=== PATIENT | male | born 1965 | race Two or more races ===

== ENCOUNTER 2020-04-04 08:22 | Outpatient (REF) | payer OTHER, SELFPAY | END 2020-04-04 08:23 | disposition home or self-care (01) | LOC: HO.LAB 08:22 | PROVIDERS: Visit Provider Internal Medicine | DX: Z20.828 Contact with and (suspected) exposure to other viral communicable diseases (principal) | CPT/HCPCS: C9803; U0003 ==

== ENCOUNTER 2021-02-03 07:08 | Outpatient (REF) | payer OTHER, SELFPAY ==
[2021-02-03 07:27] LABS: MANUAL DIFF FLAG NO
[2021-02-03 08:11] LABS: Basophils Percent Auto 0.4 % (0-2); Eosinophils Absolute Auto 0.1 X10*3/uL (0.0-0.4); Eosinophils Percent Auto 1.2 % (0-4); Imm Gran Abs Auto 0.04 X10*3/uL (0.00-0.03); Imm Gran Pct Auto 0.5 % (0.0-0.4); Lymphocytes Absolute Auto 2.8 X10*3/uL (1.2-4.9); Mean Corpuscular HGB Conc 34.1 g/dl (31.0-36.0); Mean Corpuscular Hemoglobin 30.2 pg (27.0-33.0); Mean Corpuscular Volume 88.7 fL (80-98); Mean Platelet Volume 10.9 fL (9.4-12.4); Monocytes Absolute Auto 0.6 X10*3/uL (0.1-1.2); Monocytes Percent Auto 8.2 % (2-11); Neutrophils Absolute Auto 3.8 X10*3/uL (2.0-8.3); Neutrophils Percent Auto 51.7 % (45-73); Platelet Count 236 X10*3/uL (160-400); Red Blood Count 4.96 X10*6/uL (4.60-5.80); Red Cell Distribution Width 12.1 % (11.0-16.0); White Blood Count 7.4 X10*3/uL (4.8-10.8)
[2021-02-03 08:37] LABS: Appearance Urine CLEAR; Color Urine YELLOW; Glucose Urine UA >=1000 MG/DL (NEG); Leukocyte Esterase Urine NEG (NEG); Nitrite Urine NEG (NEG); Urine Blood NEG (NEG); Urine Ketones NEG (NEG); Urine Protein NEG (NEG-TRACE)
[2021-02-03 08:41] LABS: Alanine Aminotransferase 23 U/L (0-40); Albumin Level 4.4 g/dL (3.5-5.0); Alkaline Phosphatase 54 U/L (39-117); Anion Gap 12 (12-20); Aspartate Amino Transferase 14 U/L (5-37); Bilirubin Total 0.8 mg/dL (0.0-1.0); Blood Urea Nitrogen 16 mg/dL (9-16); Calcium 9.4 mg/dL (8.4-10.2); Carbon Dioxide 27 mmol/L (22-29); Chloride 101 mmol/L (96-108); Cholesterol 154 mg/dL; Estimated Glomerular Filt Rate > 60; Glucose Fasting 225 mg/dL (60-99); HDL Cholesterol 53 mg/dL; LDL Cholesterol Calculated 83 mg/dl; Potassium 4.4 mmol/L (3.3-5.1); Sodium 136 mmol/L (135-145); Triglycerides 92 mg/dL
[2021-02-03 08:44] LABS: RBC Urine 0 /HPF (0); WBC Urine 0 /HPF (0-4)
[2021-02-03 09:00] LABS: Estimated Average Glucose 321 mg/dL; Hemoglobin A1c % 12.8 %
[2021-02-03 09:03] LABS: TSH reflex Free T4 1.37 uIU/mL (0.32-4.0)
[2021-02-03 09:09] LABS: Creatinine Urine 51.85 mg/dL; Microalbumin Urine < 5.0 mg/L
== END 2021-02-03 07:09 | disposition home or self-care (01) ==
LOC: HO.LAB 07:08
PROVIDERS: PCP Internal Medicine; Visit Provider Internal Medicine
DX: E11.9 Type 2 diabetes mellitus without complications (principal); I10 Essential (primary) hypertension; E78.00 Pure hypercholesterolemia, unspecified
CPT/HCPCS: 36415; 80053; 80061; 81001; 82043; 83036; 84443; 85025

== ENCOUNTER 2021-07-27 07:21 | Outpatient (REF) | payer OTHER, SELFPAY ==
[2021-07-27 07:38] LABS: MANUAL DIFF FLAG NO
[2021-07-27 08:27] LABS: Appearance Urine CLEAR; Color Urine YELLOW; Glucose Urine UA >=1000 MG/DL (NEG); Leukocyte Esterase Urine NEG (NEG); Nitrite Urine NEG (NEG); PH 5.5 (5.0-8.0); Specific Gravity - Urine <= 1.005 (1.005-1.025); Urine Blood NEG (NEG); Urine Ketones NEG (NEG); Urine Protein NEG (NEG-TRACE)
[2021-07-27 08:34] LABS: Basophils Percent Auto 0.5 % (0-2); Eosinophils Absolute Auto 0.1 X10*3/uL (0.0-0.4); Eosinophils Percent Auto 1.1 % (0-4); Hematocrit 47.3 % (42.0-52.0); Hemoglobin 15.6 g/dl (14.0-18.0); Imm Gran Abs Auto 0.03 X10*3/uL (0.00-0.03); Imm Gran Pct Auto 0.4 % (0.0-0.4); Lymphocytes Absolute Auto 3.2 X10*3/uL (1.2-4.9); Lymphocytes Percent Auto 38.5 % (20-40); Mean Corpuscular Hemoglobin 29.5 pg (27.0-33.0); Mean Corpuscular Volume 89.4 fL (80.0-98.0); Mean Platelet Volume 11.1 fL (9.4-12.4); Monocytes Absolute Auto 0.5 X10*3/uL (0.1-1.2); Monocytes Percent Auto 6.6 % (2-11); Neutrophils Absolute Auto 4.3 x10*3/uL (2.0-8.3); Neutrophils Percent Auto 52.9 % (45-73); Platelet Count 274 X10*3/uL (160-400); Red Blood Count 5.29 X10*6/uL (4.60-5.80); Red Cell Distribution Width 12.1 % (11.0-16.0); White Blood Count 8.2 X10*3/uL (4.8-10.8)
[2021-07-27 08:45] LABS: Estimated Average Glucose 295 mg/dL; Hemoglobin A1c % 11.9 %
[2021-07-27 08:45] LABS: RBC Urine 0 /HPF (0); WBC Urine 0 /HPF (0-4)
[2021-07-27 08:53] LABS: Creatinine Urine 42.48 mg/dL; Microalbumin Urine < 5.0 mg/L
[2021-07-27 09:01] LABS: Alanine Aminotransferase 27 U/L (0-40); Albumin Level 4.5 g/dL (3.5-5.0); Alkaline Phosphatase 58 U/L (39-117); Anion Gap 15 (12-20); Aspartate Amino Transferase 15 U/L (5-37); Bilirubin Total 0.7 mg/dL (0.0-1.0); Blood Urea Nitrogen 17 mg/dL (9-16); Calcium 10.2 mg/dL (8.4-10.2); Carbon Dioxide 26 mmol/L (22-29); Chloride 100 mmol/L (96-108); Cholesterol 162 mg/dL; Estimated Glomerular Filt Rate > 60; Glucose Fasting 262 mg/dL (60-99); HDL Cholesterol 58 mg/dL; LDL Cholesterol Calculated 83 mg/dl; Potassium 4.5 mmol/L (3.3-5.1); Sodium 136 mmol/L (135-145); Total Protein 7.5 g/dL (6.5-8.0); Triglycerides 107 mg/dL
[2021-07-27 09:13] LABS: Vitamin D 25-OH Total 31.7 ng/mL (>30)
== END 2021-07-27 07:22 | disposition home or self-care (01) ==
LOC: HO.LAB 07:21
PROVIDERS: PCP Internal Medicine; Visit Provider Internal Medicine
DX: I10 Essential (primary) hypertension (principal); E78.00 Pure hypercholesterolemia, unspecified; E11.9 Type 2 diabetes mellitus without complications; E55.9 Vitamin D deficiency, unspecified
CPT/HCPCS: 36415; 80053; 80061; 81001; 82043; 82306; 83036; 84443; 85025

== ENCOUNTER 2021-10-18 07:42 | Outpatient (REF) | payer OTHER, SELFPAY ==
[2021-10-18 08:13] LABS: MANUAL DIFF FLAG NO
[2021-10-18 08:20] LABS: Basophils Percent Auto 0.5 % (0-2); Eosinophils Absolute Auto 0.1 X10*3/uL (0.0-0.4); Eosinophils Percent Auto 1.5 % (0-4); Hematocrit 46.9 % (42.0-52.0); Hemoglobin 15.9 g/dl (14.0-18.0); Imm Gran Abs Auto 0.03 X10*3/uL (0.00-0.03); Imm Gran Pct Auto 0.4 % (0.0-0.4); Lymphocytes Absolute Auto 3.1 X10*3/uL (1.2-4.9); Lymphocytes Percent Auto 39.6 % (20-40); Mean Corpuscular HGB Conc 33.9 g/dl (31.0-36.0); Mean Corpuscular Hemoglobin 29.4 pg (27.0-33.0); Mean Corpuscular Volume 86.7 fL (80.0-98.0); Mean Platelet Volume 10.4 fL (9.4-12.4); Monocytes Absolute Auto 0.6 X10*3/uL (0.1-1.2); Monocytes Percent Auto 7.2 % (2-11); Neutrophils Percent Auto 50.8 % (45-73); Platelet Count 259 X10*3/uL (160-400); Red Blood Count 5.41 X10*6/uL (4.60-5.80); Red Cell Distribution Width 12.4 % (11.0-16.0); White Blood Count 7.9 X10*3/uL (4.8-10.8)
[2021-10-18 08:30] LABS: Estimated Average Glucose 321 mg/dL; Hemoglobin A1c % 12.8 %
[2021-10-18 08:35] LABS: Appearance Urine CLEAR; Color Urine YELLOW; Glucose Urine UA >=1000 MG/DL (NEG); Leukocyte Esterase Urine NEG (NEG); Nitrite Urine NEG (NEG); PH 5.5 (5.0-8.0); Specific Gravity - Urine <= 1.005 (1.005-1.025); Urine Blood NEG (NEG); Urine Ketones NEG (NEG); Urine Protein NEG (NEG-TRACE)
[2021-10-18 08:46] LABS: Alanine Aminotransferase 26 U/L (0-40); Albumin Level 4.8 g/dL (3.5-5.0); Alkaline Phosphatase 64 U/L (39-117); Anion Gap 17 (12-20); Aspartate Amino Transferase 15 U/L (5-37); Bilirubin Total 0.8 mg/dL (0.0-1.0); Blood Urea Nitrogen 17 mg/dL (9-16); Carbon Dioxide 23 mmol/L (22-29); Chloride 101 mmol/L (96-108); Cholesterol 170 mg/dL; Estimated Glomerular Filt Rate > 60; Glucose Fasting 292 mg/dL (60-99); HDL Cholesterol 62 mg/dL; LDL Cholesterol Calculated 83 mg/dl; Potassium 4.5 mmol/L (3.3-5.1); Sodium 136 mmol/L (135-145); Total Protein 7.9 g/dL (6.5-8.0); Triglycerides 126 mg/dL
[2021-10-18 08:59] LABS: Creatinine Urine 42.66 mg/dL; Microalbumin Urine < 5.0 mg/L; RBC Urine 0-2 /HPF (0); Squamous Epithelial Cell Urine TRACE /LPF; WBC Urine 0 /HPF (0-4)
[2021-10-18 09:08] LABS: TSH reflex Free T4 1.11 uIU/mL (0.32-4.0); Vitamin D 25-OH Total 33.9 ng/mL (>30)
== END 2021-10-18 07:43 | disposition home or self-care (01) ==
LOC: HO.LAB 07:42
PROVIDERS: PCP Internal Medicine; Visit Provider Internal Medicine
DX: I10 Essential (primary) hypertension (principal); E78.00 Pure hypercholesterolemia, unspecified; E55.9 Vitamin D deficiency, unspecified; E11.9 Type 2 diabetes mellitus without complications
CPT/HCPCS: 36415; 80053; 80061; 81001; 82043; 82306; 83036; 84443; 85025

== ENCOUNTER 2022-07-15 08:01 | Outpatient (REF) | payer OTHER, SELFPAY ==
[2022-07-15 08:10] LABS: MANUAL DIFF FLAG NO
[2022-07-15 08:17] LABS: Basophils Percent Auto 0.5 % (0-2); Eosinophils Absolute Auto 0.1 X10*3/uL (0.0-0.4); Eosinophils Percent Auto 1.7 % (0-4); Hemoglobin 15.3 g/dl (14.0-18.0); Imm Gran Abs Auto 0.02 X10*3/uL (0.00-0.03); Imm Gran Pct Auto 0.2 % (0.0-0.4); Lymphocytes Absolute Auto 2.8 X10*3/uL (1.2-4.9); Lymphocytes Percent Auto 33.1 % (20-40); Mean Corpuscular Hemoglobin 29.9 pg (27.0-33.0); Mean Corpuscular Volume 87.9 fL (80.0-98.0); Mean Platelet Volume 10.3 fL (9.4-12.4); Monocytes Absolute Auto 0.6 X10*3/uL (0.1-1.2); Neutrophils Absolute Auto 4.8 x10*3/uL (2.0-8.3); Neutrophils Percent Auto 57.5 % (45-73); Platelet Count 245 X10*3/uL (160-400); Red Blood Count 5.12 X10*6/uL (4.60-5.80); Red Cell Distribution Width 12.7 % (11.0-16.0); White Blood Count 8.3 X10*3/uL (4.8-10.8)
[2022-07-15 08:30] LABS: Estimated Average Glucose 278 mg/dL; Hemoglobin A1c % 11.3 %
[2022-07-15 09:04] LABS: Appearance Urine Clear; Color Urine Yellow; Glucose Urine UA >=1000 mg/dL (Negative); Leukocyte Esterase Urine Negative (Negative); Nitrite Urine Negative (Negative); Specific Gravity - Urine >= 1.030 (1.005-1.025); UMIC TRIGGER UACC YES; Urine Blood Negative (Negative); Urine Ketones Negative (Negative); Urine Protein Negative (Neg-Trace)
[2022-07-15 09:08] LABS: Alanine Aminotransferase 18 U/L (0-40); Albumin Level 4.5 g/dL (3.5-5.0); Alkaline Phosphatase 58 U/L (39-117); Anion Gap 11 (12-20); Aspartate Amino Transferase 11 U/L (5-37); Bilirubin Total 0.6 mg/dL (0.0-1.0); Blood Urea Nitrogen 15 mg/dL (9-16); Calcium 9.4 mg/dL (8.4-10.2); Carbon Dioxide 28 mmol/L (22-29); Chloride 102 mmol/L (96-108); Cholesterol 155 mg/dL; Estimated Glomerular Filt Rate > 60; Glucose Fasting 231 mg/dL (60-99); HDL Cholesterol 58 mg/dL; LDL Cholesterol Calculated 84 mg/dl; Potassium 4.3 mmol/L (3.3-5.1); Sodium 137 mmol/L (135-145); Triglycerides 68 mg/dL
[2022-07-15 09:09] LABS: Bacteria Urine None Seen (None Seen); Hyaline Casts Urine 0-2 /LPF (0-2); RBC Urine 0-2 /HPF (0-2); Squamous Epithelial Cell Urine 0-2 /HPF (0-2); WBC Urine 0-5 /HPF (0-5)
[2022-07-15 09:27] LABS: Prostate Specific Antigen Scr 0.47 ng/mL (<0.05-4.0); TSH reflex Free T4 1.33 uIU/mL (0.32-4.0); Vitamin D 25-OH Total 24.9 ng/mL (>30)
[2022-07-15 09:45] LABS: Creatinine Urine 53.47 mg/dL; Microalbumin Urine < 5.0 mg/L
== END 2022-07-15 08:02 | disposition home or self-care (01) ==
LOC: HO.LAB 08:01
PROVIDERS: PCP Internal Medicine; Visit Provider Internal Medicine
DX: Z00.00 Encounter for general adult medical examination without abnormal findings (principal); Z12.5 Encounter for screening for malignant neoplasm of prostate; E78.00 Pure hypercholesterolemia, unspecified; E11.9 Type 2 diabetes mellitus without complications; E55.9 Vitamin D deficiency, unspecified; I10 Essential (primary) hypertension
CPT/HCPCS: 36415; 80053; 80061; 81001; 81003; 82043; 82306; 83036; 84153; 84443; 85025

== ENCOUNTER 2022-07-18 16:44 | Outpatient (AMB) | payer OTHER, SELFPAY ==
[2022-07-18 16:49] VITALS: BP 124/78; PULSE 97; TEMP 36; O2SAT 97; BMI 28.4
--- NOTE | 2022-07-18 16:49 | MHC.PC.OV ---
Vital Signs 07/18/22 16:49 Height 5 ft 8 in Weight 187 lb 2 oz BMI 28.4 BP 124/78 Blood Pressure Location Lt brachial Position Sitting Pulse 97 Pulse Source Pulse Oximeter Temp 96.8 F Temp Source Skin Pulse Oximetry (%) 97 Oxygen Delivery Method Room Air Intake Visit Reasons: 3m follow up Intake Note: Pt is here for 3 month f/u. Having issues with getting the medication at the pharmacy for [facility] Education Nurse Required: No Accompanied by: Self / Same As Patient Allergies No Known Allergies [No Known Allergies*] Allergy (Verified 01/19/23 09:31) Tobacco use date assessed: 07/18/22 HPI 3m follow up HPI Details Patient comes in today for his follow-up visit States that he feels okay He denies any headaches or dizziness Denies any chest pains, no shortness of breath No nausea /vomiting, no abdominal pain No change in bowel habits noted Needs several of his Rx refilled Had his follow-up labs done a few days ago - to discuss his results [facility] Medical History (Updated 02/07/23 @ 05:48 by Víctor Klein MD) Vitamin D deficiency Erectile dysfunction Bilateral hearing loss Overweight (BMI 25.0-29.9) Benign essential hypertension Pure hypercholesterolemia Type 2 diabetes mellitus Surgical History No pertinent past surgical history Family History Father No problems noted. Mother No problems noted. Social History Housing: House Alcohol intake: former Patient Tobacco Use Status: Never used Tobacco e-Cigarette/Vaping Use: Never Used Second Hand Smoke Exposure: No service: No Current occupational status: employed Cognitive needs: No Hearing needs: No Vision needs: No Questionnaire PHQ-9 Over the last 2 weeks, how often have you been bothered by any of the following problems? 1. Little interest or pleasure in doing things: not at all 2. Feeling down, depressed, or hopeless: not at all 3. Trouble falling or staying asleep, or sleeping too much: not at all 4. Feeling tired or having little energy: not at all 5. Poor appetite or overeating: not at all 6. Feeling bad about yourself - or that you are a failure or have let yourself or your family down: not at all 7. Trouble concentrating on things, such as reading the newspaper or watching television: not at all 8. Moving or speaking so slowly that other people could have noticed. Or the opposite - being so fidgety or restless that you have been moving around a lot more than usual: not at all 9. Thoughts that you would be better off or of hurting yourself in some way: not at all Total score: 0 Depression Screening Interpretation: Negative 29002 - PHQ-9 Billing: Yes Source: Developed by Drs. Jcarlos Clrake, Malissa Cohen, Tejinder Sierra and colleagues, with an educational natali from [employer]. Thrive Questionnaire Date Thrive assessed: 07/18/22 I am a: Patient What is your living situation today?: I have a steady place to live Within the past 12 months, did the food you bought not last and you didn't have the money to get more?: Never true Within the past 12 months, did you worry whether your food would run out before you got money to buy more?: Never true Do you have trouble paying for medicines?: No Do you have trouble getting transportation to medical appointments?: No Do you have trouble paying your heating and electricity bill?: No Do you have trouble taking care of your child, family member or friend?: No Do you have trouble with day-to-day activities such as bathing, preparing meals, shopping, managing finances, etc.?: No Are you currently unemployed and looking for a job?: No Are you interested in more education?: No Currently or been in a relationship where the following occur: no concerns reported AUDIT C Alcohol Use Questionnaire (AUDIT-C) 1. How often do you have a drink containing alcohol?: Never 3. How often do you have six or more drinks on one occasion?: Never Total Score: 0 Score Reviewed/Action Taken: Yes FLORIN-7 AMB Questionnaire FLORIN-7 Date FLORIN - 7 assessed: 07/18/22 Feeling nervous, anxious, or on edge: 0 = Not at all Not being able to stop or control worryin = Not at all Worrying too much about different things: 0 = Not at all Trouble relaxin = Not at all Being so restless that it is hard to sit still: 0 = Not at all Becoming easily annoyed or irritable: 0 = Not at all Feeling afraid as if something awful might happen: 0 = Not at all Total FLORIN-7 score (0-4 normal; 5-9 mild; 10-14 moderate; 15-21 severe): 0 Source: Developed by Drs. Jcarlos Clarke, Malissa Cohen, Tejinder Sierra and colleagues, with an educational natali from [employer]. Review of Systems Const Denies fatigue, Denies fever(s) and Denies headache(s) ENT Denies dysphagia, Denies dizziness, Denies otalgia, Denies headache(s), Denies neck pain, Denies odynophagia and Denies sore throat Card Denies chest pain, Denies rapid heart rate, Denies irregular heart rhythm, Denies palpitations and Denies dyspnea Resp Denies cough, Denies dyspnea and Denies wheezing GI Denies abdominal pain, Denies constipation, Denies dysphagia, Denies heartburn, Denies diarrhea, Denies nausea, Denies odynophagia and Denies vomiting Denies hematuria, Denies difficulty urinating, Denies dysuria, Reports nocturia (at times) and Denies urinary frequency Musc Denies back pain, Reports arthralgias (bilateral knee pain, on and off), Denies joint swelling and Denies neck pain Skin/Breast Denies rash Neuro Denies dizziness, Denies headache(s) and Denies paresthesias Endo Denies fatigue and Denies palpitations Aller/Immun Denies wheezing Physical exam (Primary Care) Vital Signs: Last Vital Signs Temp 96.8 F 07/18/22 16:49 Pulse 97 07/18/22 16:49 BP 124/78 07/18/22 16:49 Pulse Ox 97 07/18/22 16:49 Oxygen Delivery Method Room Air 07/18/22 16:49 BMI result Body Mass Index 28.4 Tobacco/Smoking Status: Tobacco use Status Tobacco use date assessed 07/18/22 07/18/22 16:51 Patient Tobacco Use Status Never used Tobacco 07/18/22 16:51 e-Cigarette/Vaping Use Never Used 07/18/22 16:51 PHQ-9: PHQ-9 Score PHQ-9: Total score 0 07/18/22 17:31 Depression Screening Interpretation: Negative Thrive Assessment: Date of Thrive Assessment Date Thrive assessed 07/18/22 07/18/22 16:51 Currently or been in a relationship where the following occur: no concerns reported Const General: no acute distress and alert HENMT Ears: TM's normal bilaterally and EAC's normal Throat: Yes posterior oropharynx normal and Yes tonsils normal (no TP congestion) Neck Neck: Yes no lymphadenopathy and Yes supple Resp Auscultation: clear to auscultation bilaterally, no rales and no wheezes Cardio Rate: regular rate Rhythm: regular rhythm Heart sounds: no murmurs GI Palpation (GI): Soft to palpation and nontender Auscultation: normal bowel sounds General: Yes no CVA tenderness Back/Spine/Pelvis Back: no CVA tenderness Skin Rashes: no rashes Extrem General: Yes no clubbing, cyanosis or edema Right lower extremity: knee Details: tenderness; no swelling Left lower extremity: knee Details: tenderness; no swelling Results Reviewed Results Reviewed: Laboratory Tests 07/15/22 07/15/22 07/15/22 08:05 08:05 08:09 WBC 8.3 Hgb 15.3 Hct 45.0 Plt Count 245 Sodium Potassium Creatinine Estimated GFR Fasting Glucose Estimat Average Glucose Hemoglobin A1c % Calcium AST ALT Triglycerides Cholesterol LDL Cholesterol, Calc HDL Cholesterol PSA Screen 25-OH Vitamin D Total TSH Ur Specific [place] >= 1.030 H Urine Protein Negative Urine Glucose (UA) >=1000 H Urine Blood Negative Microalb/Creat Ratio TNP 07/15/22 07/15/22 08:09 08:09 WBC Hgb Hct Plt Count Sodium 137 Potassium 4.3 Creatinine 0.96 Estimated GFR > 60 Fasting Glucose 231 H Estimat Average Glucose 278 Hemoglobin A1c % 11.3 Calcium 9.4 AST 11 ALT 18 Triglycerides 68 Cholesterol 155 LDL Cholesterol, Calc 84 HDL Cholesterol 58 PSA Screen 0.47 25-OH Vitamin D Total 24.9 TSH 1.33 Ur Specific [place] Urine Protein Urine Glucose (UA) Urine Blood Microalb/Creat Ratio Assessment and Plan Assessment & Plan (1) Type 2 diabetes mellitus: Code(s): E11.9 - Type 2 diabetes mellitus without complications Qualifiers: Diabetes mellitus complication status: with hyperglycemia Diabetes mellitus lathe operator insulin use: without lathe operator use Qualified Code(s): E11.65 - Type 2 diabetes mellitus with hyperglycemia Plan: HgbA1c was at 11.3% on his labs done a few days ago (in-office HgbA1c was at 12.6% a few months ago) - goal is <7.0% Reinforced diabetic diet Continue Trulicity 1.5 mg /0.5 ml SQ once a week, Metformin 1000 mg BID (was taking it QD in the past) and Jardiance 25 mg QD [facility] for his routine diabetic eye exam (2) Pure hypercholesterolemia: Code(s): E78.00 - Pure hypercholesterolemia, unspecified Plan: Results of his labs done a few days ago reviewed and discussed with patient Reinforced low cholesterol diet Continue Atorvastatin 20 mg QD Will recheck his labs in 3 months for follow up (3) Benign essential hypertension: Code(s): I10 - Essential (primary) hypertension Plan: Reinforced low sodium diet - goal is systolic BP of 120 mm or less Continue Lisinopril 5 mg QD (4) Vitamin D deficiency: Code(s): E55.9 - Vitamin D deficiency, unspecified Plan: He is advised that his Vitamin D level was low on his recent labs Will start him on Vitamin D3 2000 units QD (5) Erectile dysfunction: Code(s): N52.9 - Male erectile dysfunction, unspecified Qualifiers: Erectile dysfunction type: unspecified Qualified Code(s): N52.9 - Male erectile dysfunction, unspecified Plan: Advised again that this mostly has to do with his hyperlipidemia and suboptimally controlled diabetes and should improve once these are better controlled Continue Sildenafil 50 mg QD PRN (6) Right knee pain: Code(s): M25.561 - Pain in right knee Qualifiers: Chronicity: unspecified Qualified Code(s): M25.561 - Pain in right knee Plan: X-rays of the right knee done a couple of years ago revealed (+) effusion and some loose bodies but no fractures noted; MRI done in January 2018 showed (+) mild OA changes as well as a flap tear of the posterior horn of the medial meniscus Follow up with orthopedics as scheduled (7) Overweight (BMI 25.0-29.9): Code(s): E66.3 - Overweight Plan: Reinforced diet/exercise as tolerated/lose weight Plan Follow up in 3 months Orders: Orders Comprehensive [place]. Panel Fast 3 Months E78.00 - Pure hypercholesterolemia, unspecified Microalbumin, Random (w Creat) 3 Months E11.9 - Type 2 diabetes mellitus without complications UA CC w/rflx Micro + Cult 3 Months R30.0 - Dysuria Vitamin D 25-OH Total 3 Months E55.9 - Vitamin D deficiency, unspecified Hemoglobin A1c 3 Months E11.9 - Type 2 diabetes mellitus without complications Complete Blood Count Auto Diff 3 Months I10 - Essential (primary) hypertension Lipid Panel 3 Months E78.00 - Pure hypercholesterolemia, unspecified TSH reflex Free T4 3 Months E78.00 - Pure hypercholesterolemia, unspecified Medications: New cholecalciferol (vitamin D3) 50 mcg PO DAILY 90 caps 3RF 90 days E55.9 - Vitamin D deficiency, unspecified Changed From metformin 1,000 mg PO BID 90 days 180 tabs 3RF E11.65 - Type 2 diabetes mellitus with hyperglycemia To metformin 1,000 mg PO BID 180 tabs 3RF 90 days E11.65 - Type 2 diabetes mellitus with hyperglycemia Refilled dulaglutide 1.5 mg (0.5 mL) subcut QWEEK 6.5 mL 3RF 90 days E11.65 - Type 2 diabetes mellitus with hyperglycemia lisinopril 5 mg PO DAILY 90 tabs 3RF 90 days E11.65 - Type 2 diabetes mellitus with hyperglycemia, I10 - Essential (primary) hypertension empagliflozin (Jardiance) 25 mg PO DAILY 90 tabs 3RF 90 days E11.65 - Type 2 diabetes mellitus with hyperglycemia atorvastatin 20 mg PO DAILY 90 tabs 3RF 90 days E78.00 - Pure hypercholesterolemia, unspecified, E11.65 - Type 2 diabetes mellitus with hyperglycemia sildenafil administer 30 minutes to 4 hours before activity 50 mg PO DAILY PRN 10 tabs 0RF sexual activity 30 days Coding Level of Care Code Est Pt Level 4 (17946) Diagnoses Type 2 diabetes mellitus with hyperglycemia, without long-term current use of insulin E11.65 Diabetes mellitus complication status: with hyperglycemia Diabetes mellitus lathe operator insulin use: without [facility] use Pure hypercholesterolemia E78.00 Benign essential hypertension I10 Vitamin D deficiency E55.9 Erectile dysfunction, unspecified erectile dysfunction type N52.9 Erectile dysfunction type: unspecified Right knee pain, unspecified chronicity M25.561 Chronicity: unspecified Overweight (BMI 25.0-29.9) E66.3
== END 2022-07-18 17:36 | disposition home or self-care (01) ==
LOC: HO.HMGH 16:44
PROVIDERS: PCP Internal Medicine; Visit Provider Internal Medicine
DX: E11.65 Type 2 diabetes mellitus with hyperglycemia (principal); E78.00 Pure hypercholesterolemia, unspecified; I10 Essential (primary) hypertension; E55.9 Vitamin D deficiency, unspecified; N52.9 Male erectile dysfunction, unspecified; M25.561 Pain in right knee; E66.3 Overweight
CPT/HCPCS: 99214

== ENCOUNTER 2023-01-19 08:38 | Outpatient (AMB) | payer OTHER, SELFPAY ==
[2023-01-19 08:39] VITALS: BP 120/70; PULSE 96; O2SAT 97; BMI 27.4
--- NOTE | 2023-01-19 08:39 | MHC.PC.OV ---
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 Accompanied by: Self / Same As Patient Allergies No Known Allergies [No Known Allergies*] Allergy (Verified 01/19/23 09:31) Medication List - Last Reconciled 01/19/23 by Víctor Klein MD atorvastatin 20 mg PO DAILY 90 days blood-glucose meter (FreeStyle Lite Meter kit) As directed cholecalciferol (vitamin D3) 50 mcg PO DAILY 90 days dulaglutide 1.5 mg (0.5 mL) subcut QWEEK 90 days empagliflozin (Jardiance) 25 mg PO DAILY 90 days lisinopril 5 mg PO DAILY 90 days metformin 1,000 mg PO BID 90 days sildenafil 50 mg PO DAILY PRN 30 days Tobacco use date assessed: 01/19/23 Dental Screening Dental Screen Date: 01/19/23 Did you have a dental visit in the last 12 months?: Yes Did you have a dental problem in the last 6 months where you did not have access to dental care?: No Was dental information given to patient?: Patient has dentist HPI DM, hyperlipidemia, HTN HPI Details Patient comes in today for his follow up visit States that he has been experiencing increased bilateral knee pains lately Does not recall any recent injury or trauma to his knees States that he feels okay otherwise He denies any headaches or dizziness Denies any chest pains, no SOB No nausea/vomiting, no abdominal pain No change in bowel habits noted Was not able to get any of his follow up labs done lately States that he was also never seen by ophthalmology for his eye exam when he was referred last year - had his initial appt cancelled due to some insurance issues and he was never rescheduled [facility] Medical History Erectile dysfunction Bilateral hearing loss Overweight (BMI 25.0-29.9) Benign essential hypertension Pure hypercholesterolemia Type 2 diabetes mellitus Surgical History No pertinent past surgical history Family History Father No problems noted. Mother No problems noted. Social History Housing: House Alcohol intake: former Patient Tobacco Use Status: Never used Tobacco e-Cigarette/Vaping Use: Never Used Second Hand Smoke Exposure: No service: No Current occupational status: employed Cognitive needs: No Hearing needs: No Vision needs: No Questionnaire PHQ-9 Over the last 2 weeks, how often have you been bothered by any of the following problems? 1. Little interest or pleasure in doing things: not at all 2. Feeling down, depressed, or hopeless: not at all 3. Trouble falling or staying asleep, or sleeping too much: not at all 4. Feeling tired or having little energy: not at all 5. Poor appetite or overeating: not at all 6. Feeling bad about yourself - or that you are a failure or have let yourself or your family down: not at all 7. Trouble concentrating on things, such as reading the newspaper or watching television: not at all 8. Moving or speaking so slowly that other people could have noticed. Or the opposite - being so fidgety or restless that you have been moving around a lot more than usual: not at all 9. Thoughts that you would be better off or of hurting yourself in some way: not at all Total score: 0 Depression Screening Interpretation: Negative 28706 - PHQ-9 Billing: Yes Source: Developed by Drs. Jcarlos Clarke, Malissa Cohen, Tejinder Sierra and colleagues, with an educational natali from [employer]. Thrive Questionnaire Date Thrive assessed: 01/19/23 I am a: Patient What is your living situation today?: I have a steady place to live Within the past 12 months, did the food you bought not last and you didn't have the money to get more?: Never true Within the past 12 months, did you worry whether your food would run out before you got money to buy more?: Never true Do you have trouble paying for medicines?: No Do you have trouble getting transportation to medical appointments?: No Do you have trouble paying your heating and electricity bill?: No Do you have trouble taking care of your child, family member or friend?: No Do you have trouble with day-to-day activities such as bathing, preparing meals, shopping, managing finances, etc.?: No Are you currently unemployed and looking for a job?: No Are you interested in more education?: No Please select the resources that you would like help with: None Currently or been in a relationship where the following occur: no concerns reported AUDIT C Alcohol Use Questionnaire (AUDIT-C) 1. How often do you have a drink containing alcohol?: Never 3. How often do you have six or more drinks on one occasion?: Never Total Score: 0 Score Reviewed/Action Taken: Yes FLORIN-7 AMB Questionnaire FLORIN-7 Date FLORIN - 7 assessed: 01/19/23 Feeling nervous, anxious, or on edge: 0 = Not at all Not being able to stop or control worryin = Not at all Worrying too much about different things: 0 = Not at all Trouble relaxin = Not at all Being so restless that it is hard to sit still: 0 = Not at all Becoming easily annoyed or irritable: 0 = Not at all Feeling afraid as if something awful might happen: 0 = Not at all Total FLORIN-7 score (0-4 normal; 5-9 mild; 10-14 moderate; 15-21 severe): 0 Source: Developed by Drs. Jcarlos Clarke, Malissa Cohen, Tejinder Sierra and colleagues, with an educational natali from [employer]. Review of Systems Const Denies chills, Denies fatigue, Denies fever(s) and Denies headache(s) ENT Denies dysphagia, Denies dizziness, Denies otalgia, Denies headache(s), Denies neck pain, Denies odynophagia and Denies sore throat Card Denies chest pain, Denies rapid heart rate, Denies irregular heart rhythm, Denies palpitations and Denies dyspnea Resp Denies cough, Denies dyspnea and Denies wheezing GI Denies abdominal pain, Denies constipation, Denies dysphagia, Denies heartburn, Denies diarrhea, Denies nausea, Denies odynophagia and Denies vomiting Denies hematuria, Denies difficulty urinating, Denies dysuria, Reports nocturia (at times) and Denies urinary frequency Musc Denies back pain, Reports arthralgias (bilateral knee pain lately), Denies joint swelling and Denies neck pain Skin/Breast Denies rash Neuro Denies dizziness, Denies headache(s) and Denies paresthesias Endo Denies fatigue and Denies palpitations Aller/Immun Denies wheezing Physical exam (Primary Care) Vital Signs: Last Vital Signs Pulse 96 01/19/23 08:39 BP 120/70 01/19/23 08:39 Pulse Ox 97 01/19/23 08:39 Oxygen Delivery Method Room Air 01/19/23 08:39 BMI result Body Mass Index 27.4 Tobacco/Smoking Status: Tobacco use Status Tobacco use date assessed 01/19/23 01/19/23 08:45 Patient Tobacco Use Status Never used Tobacco 01/19/23 08:45 e-Cigarette/Vaping Use Never Used 01/19/23 08:45 PHQ-9: PHQ-9 Score PHQ-9: Total score 0 01/19/23 08:55 Depression Screening Interpretation: Negative Thrive Assessment: Date of Thrive Assessment Date Thrive assessed 01/19/23 01/19/23 08:45 Currently or been in a relationship where the following occur: no concerns reported Const General: no acute distress and alert HENMT Ears: TM's normal bilaterally and EAC's normal Throat: Yes posterior oropharynx normal and Yes tonsils normal (no TP congestion) Neck Neck: Yes no lymphadenopathy and Yes supple Thyroid: Thyroid normal Resp Auscultation: clear to auscultation bilaterally, no rales and no wheezes Cardio Rate: regular rate Rhythm: regular rhythm Heart sounds: no murmurs GI Palpation (GI): Soft to palpation and nontender Auscultation: normal bowel sounds General: Yes no CVA tenderness Back/Spine/Pelvis Back: no CVA tenderness Skin Rashes: no rashes Extrem General: Yes no clubbing, cyanosis or edema Right lower extremity: knee Details: tenderness; no swelling Left lower extremity: knee Details: tenderness; no swelling Results AMB Hemoglobin A1c AMB Hemoglobin A1c 12.3 % Last Edit by Carlton Gomez on 01/19/23 08:56 Results Reviewed Results Reviewed: Laboratory Last Values Hgb A1c (Clinic) 12.3 % (4.0-6.0) H 01/19/23 08:55 Assessment and Plan Assessment & Plan (1) Type 2 diabetes mellitus: Code(s): E11.9 - Type 2 diabetes mellitus without complications 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 Diabetes mellitus complication status: with hyperglycemia Qualified Code(s): E11.65 - Type 2 diabetes mellitus with hyperglycemia Plan: In-office HgbA1c done today is at 12.3% (was at 12.6% a few months ago) - goal is <7.0% Reinforced diabetic diet Will increase his Trulicity to 3.0 mg /0.5 ml SQ once a week Continue Metformin 1000 mg BID and Jardiance 25 mg QD Will start him additionally on Lantus 10 units QD Will refer AGAIN to ophthalmology ([facility]) for his annual diabetic eye exam - states that his previous appt was cancelled due to insurance issues and he was never rescheduled Will also refer him to endocrinology for further management of his poorly-controlled DM (2) Pure hypercholesterolemia: Code(s): E78.00 - Pure hypercholesterolemia, unspecified Plan: Will have patient get his follow up labs done EVANGELINA - new labs ordered Reinforced low cholesterol diet Continue Atorvastatin 20 mg QD Will recheck his labs and fasting lipids again in 3 months for follow up (3) Benign essential hypertension: Code(s): I10 - Essential (primary) hypertension Plan: Reinforced low sodium diet - goal is systolic BP of 120 mm or less Continue Lisinopril 5 mg QD (4) Erectile dysfunction: Code(s): N52.9 - Male erectile dysfunction, unspecified Qualifiers: Erectile dysfunction type: unspecified Qualified Code(s): N52.9 - Male erectile dysfunction, unspecified Plan: Advised that this mostly has to do with his hyperlipidemia and suboptimally controlled diabetes and should improve once these are better controlled Continue Sildenafil 50 mg QD PRN (5) Bilateral knee pain: Code(s): M25.561 - Pain in right knee; M25.562 - Pain in left knee Qualifiers: Chronicity: unspecified Qualified Code(s): M25.561 - Pain in right knee; M25.562 - Pain in left knee Plan: X-rays of the right knee done a couple of years ago revealed (+) effusion and some loose bodies but no fractures noted; MRI done in January 2018 showed (+) mild OA changes as well as a flap tear of the posterior horn of the medial meniscus Will send him for repeat x-rays of both knees EVANGELINA for further evaluation Follow up with orthopedics as scheduled (6) Overweight (BMI 25.0-29.9): Code(s): E66.3 - Overweight Plan: Reinforced diet/exercise as tolerated/lose weight Plan Follow up in 3 months Orders: Orders AMB Hemoglobin A1c Today Z13.9 - Encounter for screening, unspecified Lipid Panel Today E78.00 - Pure hypercholesterolemia, unspecified XR knee LT 4V Today M25.561 - Pain in right knee, M25.562 - Pain in left knee Vitamin D 25-OH Total 3 Months E55.9 - Vitamin D deficiency, unspecified Complete Blood Count Auto Diff Today I10 - Essential (primary) hypertension Comprehensive Brent. Panel Fast Today E78.00 - Pure hypercholesterolemia, unspecified UA CC w/rflx Micro + Cult Today R30.0 - Dysuria TSH reflex Free T4 Today E78.00 - Pure hypercholesterolemia, unspecified Vitamin D 25-OH Total Today E55.9 - Vitamin D deficiency, unspecified Microalbumin, Random (w Creat) Today E11.9 - Type 2 diabetes mellitus without complications XR knee RT 4V Today M25.561 - Pain in right knee, M25.562 - Pain in left knee Comprehensive Brent. Panel Fast 3 Months E78.00 - Pure hypercholesterolemia, unspecified Lipid Panel 3 Months E78.00 - Pure hypercholesterolemia, unspecified Hemoglobin A1c 3 Months E11.9 - Type 2 diabetes mellitus without complications Referrals Ophthalmology Referral E11.9 - Type 2 diabetes mellitus without complications Endocrinology Referral E11.9 - Type 2 diabetes mellitus without complications Medications: New insulin glargine (Lantus Solostar U-100 Insulin) 10 units (0.1 mL) subcut QPM 15 mL 0RF Changed From dulaglutide 1.5 mg (0.5 mL) subcut QWEEK 90 days 6.5 mL 3RF E11.65 - Type 2 diabetes mellitus with hyperglycemia To dulaglutide 3 mg (0.5 mL) subcut QWEEK 90 days 6.5 mL 3RF E11.65 - Type 2 diabetes mellitus with hyperglycemia Coding Level of Care Code Est Pt Level 4 (30000) Diagnoses Type 2 diabetes mellitus with hyperglycemia, without long-term current use of insulin E11.65 Diabetes mellitus jail insulin use: without jail use Diabetes mellitus complication status: with hyperglycemia Pure hypercholesterolemia E78.00 Benign essential hypertension I10 Erectile dysfunction, unspecified erectile dysfunction type N52.9 Erectile dysfunction type: unspecified Pain in both knees, unspecified chronicity M25.561; M25.562 Chronicity: unspecified Overweight (BMI 25.0-29.9) E66.3
== END 2023-01-19 09:41 | disposition home or self-care (01) ==
PROVIDERS: PCP Internal Medicine; Visit Provider Internal Medicine
DX: E11.65 Type 2 diabetes mellitus with hyperglycemia (principal); E78.00 Pure hypercholesterolemia, unspecified; I10 Essential (primary) hypertension; N52.9 Male erectile dysfunction, unspecified; M25.561 Pain in right knee; M25.562 Pain in left knee; E66.3 Overweight
CPT/HCPCS: 83036; 99214

== ENCOUNTER 2023-05-04 09:00 | Outpatient (REF) | payer OTHER, SELFPAY ==
--- NOTE | ~2023-05-04 | XR_ITS ---
EXAMINATION: XR KNEE BILATERAL CLINICAL INFORMATION: Pain in right knee. COMPARISON: None available. TECHNIQUE: 4 views of the right knee. 4 views of the left knee. FINDINGS: Right Knee: No significant joint effusion. Tiny tricompartmental osteophytes. Mild medial joint space narrowing. Right Knee: Mild medial joint space narrowing. Tiny medial marginal and posterior patellar osteophytes. Trace joint effusion. Faint soft tissue calcifications in the infrapatellar region. XR/XR knee LT 4V IMPRESSION: Mild degenerative changes bilateral knees. MRI should be considered for further evaluation.
--- NOTE | ~2023-05-04 | XR_ITS ---
EXAMINATION: XR KNEE BILATERAL CLINICAL INFORMATION: Pain in right knee. COMPARISON: None available. TECHNIQUE: 4 views of the right knee. 4 views of the left knee. FINDINGS: Right Knee: No significant joint effusion. Tiny tricompartmental osteophytes. Mild medial joint space narrowing. Right Knee: Mild medial joint space narrowing. Tiny medial marginal and posterior patellar osteophytes. Trace joint effusion. Faint soft tissue calcifications in the infrapatellar region. XR/XR knee RT 4V IMPRESSION: Mild degenerative changes bilateral knees. MRI should be considered for further evaluation.
== END 2023-05-04 09:01 | disposition home or self-care (01) ==
LOC: HO.XRAY 09:00
PROVIDERS: PCP Internal Medicine; Visit Provider Internal Medicine
DX: M25.562 Pain in left knee (principal); M25.561 Pain in right knee
CPT/HCPCS: 73564

== ENCOUNTER 2023-05-12 07:51 | Outpatient (REF) | payer OTHER, SELFPAY ==
[2023-05-12 08:15] LABS: MANUAL DIFF FLAG NO
[2023-05-12 08:40] LABS: Basophils Percent Auto 0.4 % (0-2); Eosinophils Absolute Auto 0.1 X10*3/uL (0.0-0.4); Eosinophils Percent Auto 1.1 % (0-4); Hematocrit 45.8 % (42.0-52.0); Hemoglobin 15.5 g/dl (14.0-18.0); Imm Gran Abs Auto 0.02 X10*3/uL (0.00-0.03); Imm Gran Pct Auto 0.3 % (0.0-0.4); Lymphocytes Absolute Auto 2.7 X10*3/uL (1.2-4.9); Lymphocytes Percent Auto 37.5 % (20-40); Mean Corpuscular HGB Conc 33.8 g/dl (31.0-36.0); Mean Corpuscular Volume 88.8 fL (80.0-98.0); Mean Platelet Volume 10.6 fL (9.4-12.4); Monocytes Absolute Auto 0.5 X10*3/uL (0.1-1.2); Monocytes Percent Auto 6.7 % (2-11); Neutrophils Absolute Auto 3.9 x10*3/uL (2.0-8.3); Platelet Count 247 X10*3/uL (160-400); Red Blood Count 5.16 X10*6/uL (4.60-5.80); Red Cell Distribution Width 12.1 % (11.0-16.0); White Blood Count 7.2 X10*3/uL (4.8-10.8)
[2023-05-12 09:02] LABS: Estimated Average Glucose 235 mg/dL; Hemoglobin A1c % 9.8 % (<6.0)
[2023-05-12 09:34] LABS: Alanine Aminotransferase 23 U/L (0-40); Albumin Level 4.4 g/dL (3.5-5.0); Alkaline Phosphatase 55 U/L (39-117); Anion Gap 11 (12-20); Aspartate Amino Transferase 15 U/L (5-37); Bilirubin Total 0.5 mg/dL (0.0-1.0); Blood Urea Nitrogen 15 mg/dL (9-16); Calcium 9.5 mg/dL (8.4-10.2); Carbon Dioxide 28 mmol/L (22-29); Chloride 104 mmol/L (96-108); Cholesterol 152 mg/dL (<200); Estimated Glomerular Filt Rate > 60; Glucose Fasting 227 mg/dL (60-99); HDL Cholesterol 62 mg/dL (>40); LDL Cholesterol Calculated 72 mg/dL (<100); Potassium 4.2 mmol/L (3.3-5.1); Sodium 139 mmol/L (135-145); Total Protein 7.5 g/dL (6.5-8.0); Triglycerides 92 mg/dL (<150)
[2023-05-12 09:41] LABS: Vitamin D 25-OH Total 37.4 ng/mL (>30)
[2023-05-12 10:49] LABS: Appearance Urine Clear; Color Urine Yellow; Glucose Urine UA >=1000 mg/dL (Negative); Leukocyte Esterase Urine Negative (Negative); Nitrite Urine Negative (Negative); PH 5.5 (5.0-9.0); Specific Gravity - Urine >= 1.030 (1.005-1.025); UMIC TRIGGER UACC YES; Urine Blood Negative (Negative); Urine Ketones Negative (Negative); Urine Protein Negative (Neg-Trace)
[2023-05-12 10:59] LABS: Bacteria Urine None Seen (None Seen); RBC Urine 0-2 /HPF (0-2); Squamous Epithelial Cell Urine 0-2 /HPF (0-2); WBC Urine 0-5 /HPF (0-5)
[2023-05-12 11:32] LABS: Microalbumin Urine < 5.0 mg/L
== END 2023-05-12 07:52 | disposition home or self-care (01) ==
LOC: HO.LAB 07:51
PROVIDERS: PCP Internal Medicine; Visit Provider Internal Medicine
DX: E78.00 Pure hypercholesterolemia, unspecified (principal); R30.0 Dysuria; E55.9 Vitamin D deficiency, unspecified; I10 Essential (primary) hypertension; E11.9 Type 2 diabetes mellitus without complications
CPT/HCPCS: 36415; 80053; 80061; 81001; 82043; 82306; 82570; 83036; 84443; 85025

== ENCOUNTER 2023-05-16 14:32 | Outpatient (AMB) | payer OTHER, SELFPAY ==
[2023-05-16 14:37] VITALS: BP 110/62; PULSE 94; O2SAT 98; BMI 28.6
--- NOTE | 2023-05-16 14:37 | MHC.PC.OV ---
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 Accompanied by: Self / Same As Patient Allergies No Known Allergies [No Known Allergies*] Allergy (Verified 05/16/23 15:01) Medication List - Last Reconciled 05/16/23 by Víctor Klein MD atorvastatin 20 mg PO DAILY 90 days blood-glucose meter (FreeStyle Lite Meter kit) As directed cholecalciferol (vitamin D3) 50 mcg PO DAILY 90 days dulaglutide 3 mg (0.5 mL) subcut QWEEK 90 days empagliflozin (Jardiance) 25 mg PO DAILY 90 days insulin glargine (Lantus Solostar U-100 Insulin) 10 units (0.1 mL) subcut QPM lisinopril 5 mg PO DAILY 90 days metformin 1,000 mg PO BID 90 days pen needle, diabetic (BD Ultra-Fine Sri Pen Needle) As directed once a day sildenafil 50 mg PO DAILY PRN 30 days Tobacco use date assessed: 05/16/23 Dental Screening Dental Screen Date: 05/16/23 Did you have a dental visit in the last 12 months?: Yes Did you have a dental problem in the last 6 months where you did not have access to dental care?: No Was dental information given to patient?: Patient has dentist HPI 3mth f/u HPI Details Patient comes in today for his follow up visit States that he feels okay He denies any headaches or dizziness Denies any chest pains, no SOB No nausea/vomiting, no abdominal pain No change in bowel habits noted He continues to experience increased and recurrent pain in both knees and would like to know how his knee x-rays done a couple of weeks ago came out Needs his Metformin and pen needles Rx refilled Had his follow up labs done a few days ago - to discuss his results [facility] Medical History Vitamin D deficiency Erectile dysfunction Bilateral hearing loss Overweight (BMI 25.0-29.9) Benign essential hypertension Pure hypercholesterolemia Type 2 diabetes mellitus Surgical History No pertinent past surgical history Family History Father No problems noted. Mother No problems noted. Social History Housing: House Alcohol intake: former Patient Tobacco Use Status: Never used Tobacco e-Cigarette/Vaping Use: Never Used Second Hand Smoke Exposure: No service: No Current occupational status: employed Cognitive needs: No Hearing needs: No Vision needs: No Questionnaire PHQ-9 Over the last 2 weeks, how often have you been bothered by any of the following problems? 1. Little interest or pleasure in doing things: not at all 2. Feeling down, depressed, or hopeless: not at all 3. Trouble falling or staying asleep, or sleeping too much: not at all 4. Feeling tired or having little energy: not at all 5. Poor appetite or overeating: not at all 6. Feeling bad about yourself - or that you are a failure or have let yourself or your family down: not at all 7. Trouble concentrating on things, such as reading the newspaper or watching television: not at all 8. Moving or speaking so slowly that other people could have noticed. Or the opposite - being so fidgety or restless that you have been moving around a lot more than usual: not at all 9. Thoughts that you would be better off or of hurting yourself in some way: not at all Total score: 0 Depression Screening Interpretation: Negative Depression Screening Done: Yes 24857 - PHQ-9 Billing: Yes Source: Developed by Drs. Jcarlos Clarke, Malissa Cohen, Tejinder Sierra and colleagues, with an educational natali from [employer]. Thrive Questionnaire Date Thrive assessed: 05/16/23 I am a: Patient What is your living situation today?: I have a steady place to live Within the past 12 months, did the food you bought not last and you didn't have the money to get more?: Never true Within the past 12 months, did you worry whether your food would run out before you got money to buy more?: Never true Do you have trouble paying for medicines?: No Do you have trouble getting transportation to medical appointments?: No Do you have trouble paying your heating and electricity bill?: No Do you have trouble taking care of your child, family member or friend?: No Do you have trouble with day-to-day activities such as bathing, preparing meals, shopping, managing finances, etc.?: No Are you currently unemployed and looking for a job?: No Are you interested in more education?: No Please select the resources that you would like help with: None Currently or been in a relationship where the following occur: no concerns reported AUDIT C Alcohol Use Questionnaire (AUDIT-C) 1. How often do you have a drink containing alcohol?: Never 3. How often do you have six or more drinks on one occasion?: Never Total Score: 0 Score Reviewed/Action Taken: Yes FLORIN-7 AMB Questionnaire FLORIN-7 Date FLORIN - 7 assessed: 05/16/23 Feeling nervous, anxious, or on edge: 0 = Not at all Not being able to stop or control worryin = Not at all Worrying too much about different things: 0 = Not at all Trouble relaxin = Not at all Being so restless that it is hard to sit still: 0 = Not at all Becoming easily annoyed or irritable: 0 = Not at all Feeling afraid as if something awful might happen: 0 = Not at all Total FLORIN-7 score (0-4 normal; 5-9 mild; 10-14 moderate; 15-21 severe): 0 Source: Developed by Drs. Jcarlos Clarke, Malissa Cohen, Tejinder Sierra and colleagues, with an educational natali from [employer]. Review of Systems Const Denies chills, Denies fatigue, Denies fever(s) and Denies headache(s) ENT Denies dysphagia, Denies dizziness, Denies otalgia, Denies headache(s), Denies neck pain, Denies odynophagia and Denies sore throat Card Denies chest pain, Denies rapid heart rate, Denies irregular heart rhythm, Denies palpitations and Denies dyspnea Resp Denies cough, Denies dyspnea and Denies wheezing GI Denies abdominal pain, Denies constipation, Denies dysphagia, Denies heartburn, Denies diarrhea, Denies nausea, Denies odynophagia and Denies vomiting Denies hematuria, Denies difficulty urinating, Denies dysuria, Reports nocturia (at times) and Denies urinary frequency Musc Denies back pain, Reports arthralgias (bilateral knee pain, increasing), Denies joint swelling and Denies neck pain Skin/Breast Denies rash Neuro Denies dizziness, Denies headache(s) and Denies paresthesias Endo Denies fatigue and Denies palpitations Aller/Immun Denies wheezing Physical exam (Primary Care) Vital Signs: Last Vital Signs Pulse 94 05/16/23 14:37 BP 110/62 05/16/23 14:37 Pulse Ox 98 05/16/23 14:37 Oxygen Delivery Method Room Air 05/16/23 14:37 BMI result Body Mass Index 28.6 Tobacco/Smoking Status: Tobacco use Status Tobacco use date assessed 05/16/23 05/16/23 14:43 Patient Tobacco Use Status Never used Tobacco 05/16/23 14:43 e-Cigarette/Vaping Use Never Used 05/16/23 14:43 PHQ-9: PHQ-9 Score PHQ-9: Total score 0 05/16/23 14:43 Depression Screening Interpretation: Negative Thrive Assessment: Date of Thrive Assessment Date Thrive assessed 05/16/23 05/16/23 14:43 Currently or been in a relationship where the following occur: no concerns reported Const General: no acute distress and alert HENMT Ears: TM's normal bilaterally and EAC's normal Throat: Yes posterior oropharynx normal and Yes tonsils normal (no TP congestion) Neck Neck: Yes no lymphadenopathy and Yes supple Thyroid: Thyroid normal Resp Auscultation: clear to auscultation bilaterally, no rales and no wheezes Cardio Rate: regular rate Rhythm: regular rhythm Heart sounds: no murmurs GI Palpation (GI): Soft to palpation and nontender Auscultation: normal bowel sounds General: Yes no CVA tenderness Back/Spine/Pelvis Back: no CVA tenderness Skin Rashes: no rashes Extrem General: Yes no clubbing, cyanosis or edema Right lower extremity: knee Details: tenderness; no swelling Left lower extremity: knee Details: tenderness; no swelling Results Reviewed Results Reviewed: Laboratory Tests 05/12/23 05/12/23 05/12/23 08:09 08:14 08:14 WBC 7.2 Hgb 15.5 Hct 45.8 Plt Count 247 Sodium 139 Potassium 4.2 Creatinine 0.77 Estimated GFR > 60 Fasting Glucose 227 H Hemoglobin A1c % 9.8 H Calcium 9.5 AST 15 ALT 23 Triglycerides 92 Cholesterol 152 LDL Cholesterol, Calc 72 HDL Cholesterol 62 25-OH Vitamin D Total 37.4 TSH 1.10 Ur Specific [place] >= 1.030 H Urine Protein Negative Urine Glucose (UA) >=1000 H Urine Blood Negative Urine Nitrite Negative Ur Leukocyte Esterase Negative Assessment and Plan Assessment & Plan (1) Type 2 diabetes mellitus: Code(s): E11.9 - Type 2 diabetes mellitus without complications Qualifiers: 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: 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 Patient states that he is currently trying to get into where his goes for her exam He was referred to endocrinology as well for further management of his poorly-controlled DM but he has not yet been scheduled to see endocrinology at this time (2) Pure hypercholesterolemia: Code(s): E78.00 - Pure hypercholesterolemia, unspecified Plan: Results of his labs done a few days ago reviewed and discussed with patient - lipids have again improved slightly from previous Reinforced low cholesterol diet Continue Atorvastatin 20 mg QD Will recheck his labs and fasting lipids in 3 months for follow up (3) Benign essential hypertension: Code(s): I10 - Essential (primary) hypertension Plan: Reinforced low sodium diet - goal is systolic BP of 120 mm or less Continue Lisinopril 5 mg QD (4) Erectile dysfunction: Code(s): N52.9 - Male erectile dysfunction, unspecified Qualifiers: Erectile dysfunction type: unspecified Qualified Code(s): N52.9 - Male erectile dysfunction, unspecified Plan: Advised again that this mostly has to do with his hyperlipidemia and suboptimally controlled diabetes and should improve once these are better controlled Continue Sildenafil 50 mg QD PRN (5) Bilateral knee pain: Code(s): M25.561 - Pain in right knee; M25.562 - Pain in left knee Qualifiers: Chronicity: unspecified Qualified Code(s): M25.561 - Pain in right knee; M25.562 - Pain in left knee Plan: X-rays of the right knee done a couple of years ago revealed (+) effusion and some loose bodies but no fractures noted; MRI done in January 2018 showed (+) mild OA changes as well as a flap tear of the posterior horn of the medial meniscus Repeat x-rays of both knees done a couple of weeks ago again showed (+) OA changes in both knees and recommended MRI for further evaluation MRI of bilateral knees ordered - patient is advised that if his insurance will not cover the MRI, will then leave it up to orthopedics to decide if the repeat MRI is necessary or not Follow up with orthopedics as scheduled (6) Bilateral hearing loss: Code(s): H91.93 - Unspecified hearing loss, bilateral Qualifiers: Hearing loss type: unspecified Qualified Code(s): H91.93 - Unspecified hearing loss, bilateral Plan: He was previously referred to ENT back in 2020 but states that he was never contacted and never scheduled for an appointment Will try referring him to the speech and hearing center here at [facility] for now for repeat exam/evaluation (7) Overweight (BMI 25.0-29.9): Code(s): E66.3 - Overweight Plan: Reinforced diet/exercise as tolerated/lose weight Plan Follow up in 3 months Orders: Orders MR knee LT wo con Today M17.0 - Bilateral primary osteoarthritis of knee Complete Blood Count Auto Diff 3 Months D64.9 - Anemia, unspecified Comprehensive Victor. Panel Fast 3 Months E78.00 - Pure hypercholesterolemia, unspecified Lipid Panel 3 Months E78.00 - Pure hypercholesterolemia, unspecified UA CC w/rflx Micro + Cult 3 Months R30.0 - Dysuria MR knee RT wo con Today M17.0 - Bilateral primary osteoarthritis of knee Hemoglobin A1c 3 Months E11.9 - Type 2 diabetes mellitus without complications Microalbumin, Random (w Creat) 3 Months E11.9 - Type 2 diabetes mellitus without complications TSH reflex Free T4 3 Months E78.00 - Pure hypercholesterolemia, unspecified Vitamin D 25-OH Total 3 Months E55.9 - Vitamin D deficiency, unspecified Referrals Speech and Hearing Referral H91.90 - Unspecified hearing loss, unspecified ear Medications: Refilled pen needle, diabetic (BD Ultra-Fine Sri Pen Needle) As directed once a day 100 ea 3RF E11.9 - Type 2 diabetes mellitus without complications metformin 1,000 mg PO BID 90 days 180 tabs 3RF E11.65 - Type 2 diabetes mellitus with hyperglycemia Coding Level of Care Code Est Pt Level 4 (15513) Diagnoses Type 2 diabetes mellitus with hyperglycemia, without long-term current use of insulin E11.65 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
== END 2023-05-16 15:15 | disposition home or self-care (01) ==
PROVIDERS: PCP Internal Medicine; Visit Provider Internal Medicine
DX: E11.65 Type 2 diabetes mellitus with hyperglycemia (principal); E78.00 Pure hypercholesterolemia, unspecified; I10 Essential (primary) hypertension; N52.9 Male erectile dysfunction, unspecified; M25.561 Pain in right knee; M25.562 Pain in left knee; H91.93 Unspecified hearing loss, bilateral; E66.3 Overweight; E55.9 Vitamin D deficiency, unspecified
CPT/HCPCS: 99214

== ENCOUNTER 2023-07-03 12:50 | Outpatient (AMB) | payer OTHER, SELFPAY ==
--- NOTE | 2023-07-03 13:00 | MHC.OFFVIS ---
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 Left >Right . Patient reports that he injured the right knee about 5 years ago, twisting injury. Patient would like MRI. 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 He reports injuring his knees ~5 years ago, and has had intermittent pain since. He would like to have an MRI done. [facility] Medical History Vitamin D deficiency Erectile dysfunction Bilateral hearing loss Overweight (BMI 25.0-29.9) Benign essential hypertension Pure hypercholesterolemia Type 2 diabetes mellitus Surgical History No pertinent past surgical history Family History Father No problems noted. Mother No problems noted. Social History Housing: House Alcohol intake: former Patient Tobacco Use Status: Never used Tobacco e-Cigarette/Vaping Use: Never Used Second Hand Smoke Exposure: No service: No Current occupational status: employed Cognitive needs: No Hearing needs: No Vision needs: No Review of Systems Const All systems reviewed & are unremarkable except as noted in HPI and below Physical Exam Const General: no acute distress, alert and awake Orientation/consciousness: patient oriented x3 HEENT Head: Yes normocephalic and Yes atraumatic Mouth: moist mucous membranes Eyes General: appearance normal, both eyes and all related structures EOM: EOMs intact bilaterally Chest Other: no audible wheezing. Resp Other: No audible wheezing Effort & Inspection: normal respiratory effort and able to speak in complete sentences Cardio Other: Radial pulse palpable with no rythmic abnormalities Jugular venous distension: no JVD Back/Spine/Pelvis Cervical Spine: normal cervical lordosis Skin General skin exam: turgor normal Rashes: no rashes Neuro General: patient oriented x3 Extrem Other: Patient has some mild retropatellar tenderness to palpation bilaterally. There is no effusion and no joint line tenderness. Psych Appearance: grossly normal Mental Status: mental status grossly normal Speech and movement: Normal speech and movement present Affect: normal affect Attitude: cooperative Office Procedures Joint Injection/Drain Joint Injection/Drain Details: Injected 1 mL of Decadron and 3 mL 1% lidocaine and 3 mL of 0.25% Marcaine. Site was prepped using aseptic technique. Patient tolerated the procedure well. Primary Site: left knee Approach Used: anterolateral Coding - Large joint Procedure code (CPT) selection complete Results Reviewed Results Reviewed: I personally reviewed relevant radiographs. Mild bilateral knee OA Assessment & Plan Assessment & Plan (1) Bilateral primary osteoarthritis of knee: Code(s): M17.0 - Bilateral primary osteoarthritis of knee Plan: This is a 57-year-old gentleman with bilateral knee pain left greater than right. At this time I injected his left knee. We will see if this is beneficial. He describes symptoms associated with patellofemoral arthritis. He will let me know if the injection is helpful. Plan Prepared for Christoph Naik MD by Harley Cooper, medical care administrator, on 07/03/23 at 1:14 PM, EST. Coding Level of Care Code New Pt Level 3 (26720) Diagnoses Bilateral primary osteoarthritis of knee M17.0 CPT Codes Coding - Large joint: 50141 - Large joint ([id number])
== END 2023-07-03 13:34 | disposition home or self-care (01) ==
PROVIDERS: PCP Internal Medicine; Visit Provider Orthopaedic Surgery
DX: M17.0 Bilateral primary osteoarthritis of knee (principal)
CPT/HCPCS: 20610; 99203

== ENCOUNTER → 2023-07-03 12:50 | Outpatient (BNVA) | payer OTHER, SELFPAY | PROVIDERS: PCP Internal Medicine; Visit Provider Orthopaedic Surgery | DX: M17.0 Bilateral primary osteoarthritis of knee (principal) | CPT/HCPCS: 20610; 99202; J0665; J1100 ==

== ENCOUNTER 2023-08-16 07:40 | Outpatient (REF) | payer OTHER, SELFPAY ==
[2023-08-16 07:54] LABS: MANUAL DIFF FLAG NO
[2023-08-16 08:51] LABS: Basophils Percent Auto 0.5 % (0-2); Eosinophils Absolute Auto 0.1 X10*3/uL (0.0-0.4); Eosinophils Percent Auto 1.1 % (0-4); Hemoglobin 15.7 g/dl (14.0-18.0); Imm Gran Abs Auto 0.02 X10*3/uL (0.00-0.03); Imm Gran Pct Auto 0.3 % (0.0-0.4); Lymphocytes Percent Auto 38.8 % (20-40); Mean Corpuscular HGB Conc 33.4 g/dl (31.0-36.0); Mean Corpuscular Hemoglobin 29.8 pg (27.0-33.0); Mean Corpuscular Volume 89.2 fL (80.0-98.0); Mean Platelet Volume 10.8 fL (9.4-12.4); Monocytes Absolute Auto 0.5 X10*3/uL (0.1-1.2); Monocytes Percent Auto 6.3 % (2-11); Platelet Count 250 X10*3/uL (160-400); Red Blood Count 5.27 X10*6/uL (4.60-5.80); Red Cell Distribution Width 12.4 % (11.0-16.0); White Blood Count 7.6 X10*3/uL (4.8-10.8)
[2023-08-16 08:55] LABS: Appearance Urine Clear; Color Urine Yellow; Glucose Urine UA >=1000 mg/dL (Negative); Leukocyte Esterase Urine Negative (Negative); Nitrite Urine Negative (Negative); PH 5.5 (5.0-9.0); Specific Gravity - Urine >= 1.030 (1.005-1.025); UMIC TRIGGER UACC YES; Urine Blood Negative (Negative); Urine Ketones Negative (Negative); Urine Protein Negative (Neg-Trace)
[2023-08-16 08:55] LABS: Estimated Average Glucose 266 mg/dL; Hemoglobin A1c % 10.9 % (<6.0)
[2023-08-16 08:59] LABS: Bacteria Urine None Seen (None Seen); Hyaline Casts Urine 0-2 /LPF (0-2); RBC Urine 0-2 /HPF (0-2); Squamous Epithelial Cell Urine 0-2 /HPF (0-2); WBC Urine 0-5 /HPF (0-5)
[2023-08-16 09:25] LABS: Creatinine Urine 55.46 mg/dL; Microalbumin Urine < 5.0 mg/L
[2023-08-16 11:10] LABS: Alanine Aminotransferase 23 U/L (0-40); Albumin Level 4.4 g/dL (3.5-5.0); Alkaline Phosphatase 60 U/L (39-117); Anion Gap 13 (12-20); Aspartate Amino Transferase 15 U/L (5-37); Bilirubin Total 0.6 mg/dL (0.0-1.0); Blood Urea Nitrogen 18 mg/dL (9-16); Calcium 9.6 mg/dL (8.4-10.2); Carbon Dioxide 26 mmol/L (22-29); Chloride 102 mmol/L (96-108); Cholesterol 146 mg/dL (<200); Estimated Glomerular Filt Rate > 60; Glucose Fasting 204 mg/dL (60-99); HDL Cholesterol 58 mg/dL (>40); LDL Cholesterol Calculated 74 mg/dL (<100); Sodium 137 mmol/L (135-145); Total Protein 7.3 g/dL (6.5-8.0); Triglycerides 73 mg/dL (<150)
[2023-08-16 11:33] LABS: TSH reflex Free T4 1.02 uIU/mL (0.32-4.0); Vitamin D 25-OH Total 36.7 ng/mL (>30)
== END 2023-08-16 07:41 | disposition home or self-care (01) ==
LOC: HO.LAB 07:40
PROVIDERS: PCP Internal Medicine; Visit Provider Internal Medicine
DX: D64.9 Anemia, unspecified (principal); E55.9 Vitamin D deficiency, unspecified; E78.00 Pure hypercholesterolemia, unspecified; E11.9 Type 2 diabetes mellitus without complications
CPT/HCPCS: 36415; 80053; 80061; 81001; 82043; 82306; 82570; 83036; 84443; 85025

== ENCOUNTER 2023-11-03 17:00 | Outpatient (AMB) | payer OTHER, SELFPAY ==
[2023-11-03 17:16] VITALS: BP 130/70; PULSE 92; O2SAT 96; BMI 28.2
--- NOTE | 2023-11-03 17:16 | MHC.PC.OV ---
Vital Signs 11/03/23 17:16 Height 5 ft 8 in Weight 185 lb 6 oz BMI 28.2 BP 130/70 Blood Pressure Location Lt brachial Position Sitting Pulse 92 Pulse Source Pulse Oximeter Pulse Oximetry (%) 96 Oxygen Delivery Method Room Air Intake Visit Reasons: 3 month f/u Diagnostic Tech Required: No Accompanied by: Self / Same As Patient Allergies No Known Allergies [No Known Allergies*] Allergy (Verified 11/03/23 17:50) Medication List - Last Reconciled 11/03/23 by Víctor Klein MD atorvastatin 20 mg PO DAILY 90 days blood-glucose meter (FreeStyle Lite Meter kit) As directed cholecalciferol (vitamin D3) 50 mcg PO DAILY 90 days dulaglutide 3 mg (0.5 mL) subcut QWEEK 90 days empagliflozin (Jardiance) 25 mg PO DAILY 90 days ibuprofen 800 mg PO TID PRN 30 days insulin glargine (Lantus Solostar U-100 Insulin) 10 units (0.1 mL) subcut QPM lisinopril 5 mg PO DAILY 90 days metformin 1,000 mg PO BID 90 days pen needle, diabetic (BD Ultra-Fine Sri Pen Needle) As directed once a day sildenafil 50 mg PO DAILY PRN 30 days Tobacco use date assessed: 05/16/23 Dental Screening Dental Screen Date: 05/16/23 HPI 3 month f/u HPI Details Patient comes in today for his follow up visit States that he lost his health insurance coverage again a couple of months ago and he was not able to get it reinstated until recently States that he does not really know why this keeps happening He has been out of some of his meds for the past 1.5 months as a result and now needs several of his Rx refilled States that he feels okay otherwise He denies any headaches or dizziness Denies any chest pains, no SOB No nausea/vomiting, no abdominal pain No change in bowel habits noted He continues to experience recurrent pain in both knees and would also like to get his Ibuprofen Rx refilled He had his follow up labs done back in July 2023 but could not keep his follow up appointment then because of his insurance issues [facility] Medical History Vitamin D deficiency Erectile dysfunction Bilateral hearing loss Overweight (BMI 25.0-29.9) Benign essential hypertension Pure hypercholesterolemia Type 2 diabetes mellitus Surgical History No pertinent past surgical history Family History Father No problems noted. Mother No problems noted. Social History Housing: House Alcohol intake: former Patient Tobacco Use Status: Never used Tobacco e-Cigarette/Vaping Use: Never Used Second Hand Smoke Exposure: No service: No Current occupational status: employed Cognitive needs: No Hearing needs: No Vision needs: No Questionnaire Thrive Questionnaire Date Thrive assessed: 05/16/23 FLORIN-7 AMB Questionnaire FLORIN-7 Date FLORIN - 7 assessed: 05/16/23 Source: Developed by Drs. Jcarlos Clarke, Malissa Cohen, Tejinder Sierra and colleagues, with an educational natali from [employer] Review of Systems Const Denies chills, Denies fatigue, Denies fever(s) and Denies headache(s) ENT Denies dysphagia, Denies dizziness, Denies otalgia, Denies headache(s), Denies neck pain, Denies odynophagia and Denies sore throat Card Denies chest pain, Denies rapid heart rate, Denies irregular heart rhythm, Denies palpitations and Denies dyspnea Resp Denies cough, Denies dyspnea and Denies wheezing GI Denies abdominal pain, Denies constipation, Denies dysphagia, Denies heartburn, Denies diarrhea, Denies nausea, Denies odynophagia and Denies vomiting Denies hematuria, Denies difficulty urinating, Denies dysuria, Reports nocturia (at times) and Denies urinary frequency Musc Denies back pain, Reports arthralgias (bilateral knee pain, increasing), Denies joint swelling and Denies neck pain Skin/Breast Denies rash Neuro Denies dizziness, Denies headache(s) and Denies paresthesias Endo Denies fatigue and Denies palpitations Aller/Immun Denies wheezing Physical exam (Primary Care) Vital Signs: Last Vital Signs Pulse 92 11/03/23 17:16 BP 130/70 11/03/23 17:16 Pulse Ox 96 11/03/23 17:16 Oxygen Delivery Method Room Air 11/03/23 17:16 BMI result Body Mass Index 28.2 Tobacco/Smoking Status: Tobacco use Status Tobacco use date assessed 05/16/23 11/03/23 17:18 Patient Tobacco Use Status Never used Tobacco 11/03/23 17:18 e-Cigarette/Vaping Use Never Used 11/03/23 17:18 Thrive Assessment: Date of Thrive Assessment Date Thrive assessed 05/16/23 11/03/23 17:18 Const General: no acute distress and alert HENMT Ears: TM's normal bilaterally and EAC's normal Throat: Yes posterior oropharynx normal and Yes tonsils normal (no TP congestion) Neck Neck: Yes no lymphadenopathy and Yes supple Thyroid: Thyroid normal Resp Auscultation: clear to auscultation bilaterally, no rales and no wheezes Cardio Rate: regular rate Rhythm: regular rhythm Heart sounds: no murmurs GI Palpation (GI): Soft to palpation and nontender Auscultation: normal bowel sounds General: Yes no CVA tenderness Back/Spine/Pelvis Back: no CVA tenderness Thoracic/Lumbar Spine: No lumbar spinal tenderness Skin Rashes: no rashes Extrem General: Yes no clubbing, cyanosis or edema Right lower extremity: knee Details: tenderness; no swelling Left lower extremity: knee Details: tenderness; no swelling Results Reviewed Results Reviewed: Laboratory Tests 08/16/23 08/16/23 07:53 07:55 WBC 7.6 Hgb 15.7 Hct 47.0 Plt Count 250 Sodium 137 Potassium 4.0 Creatinine 0.80 Estimated GFR > 60 Fasting Glucose 204 H Hemoglobin A1c % 10.9 H Calcium 9.6 AST 15 ALT 23 Triglycerides 73 Cholesterol 146 LDL Cholesterol, Calc 74 HDL Cholesterol 58 25-OH Vitamin D Total 36.7 TSH 1.02 Ur Specific [place] >= 1.030 H Urine Glucose (UA) >=1000 H Urine Blood Negative Urine Nitrite Negative Ur Leukocyte Esterase Negative Microalb/Creat Ratio TNP Assessment and Plan Assessment & Plan (1) Type 2 diabetes mellitus: Code(s): E11.9 - Type 2 diabetes mellitus without complications Qualifiers: Diabetes mellitus fdc insulin use: without fdc use Diabetes mellitus complication status: with hyperglycemia Qualified Code(s): E11.65 - Type 2 diabetes mellitus with hyperglycemia Plan: His in-office HgbA1c done today is at 10.0% (his HgbA1c was at 10.9% back in July 2023) - goal is <7.0% Have advised him that it is not surprising that his diabetes has not gotten any better as he has been out of his meds for almost 2 months now Reinforced diabetic diet Will start him back on his Trulicity 3.0 mg /0.5 ml SQ once a week, Metformin 1000 mg BID, Jardiance 25 mg QD and Lantus 10 units QD - Rx refilled He was referred previously to endocrinology as well for further management of his poorly-controlled DM but he has not yet been scheduled to see endocrinology at this time Will see how he does first over the next few months and will try referring him to our endocrinology practitioners in [place] in a few months when he returns for his next follow up appointment and if his blood sugar is still not significantly better by then (2) Pure hypercholesterolemia: Code(s): E78.00 - Pure hypercholesterolemia, unspecified Plan: Results of his labs done a few days ago reviewed and discussed with patient - lipids have again improved slightly from previous Reinforced low cholesterol diet Continue Atorvastatin 20 mg QD Will recheck his labs and fasting lipids in 3 months for follow up (3) Benign essential hypertension: Code(s): I10 - Essential (primary) hypertension Plan: Reinforced low sodium diet - goal is systolic BP of 120 mm or less Continue Lisinopril 5 mg QD (4) Erectile dysfunction: Code(s): N52.9 - Male erectile dysfunction, unspecified Qualifiers: Erectile dysfunction type: unspecified Qualified Code(s): N52.9 - Male erectile dysfunction, unspecified Plan: He is advised again that this mostly has to do with his hyperlipidemia and suboptimally controlled diabetes and should improve once these are better controlled Continue Sildenafil 50 mg QD PRN (5) Bilateral knee pain: Code(s): M25.561 - Pain in right knee; M25.562 - Pain in left knee Qualifiers: Chronicity: unspecified Qualified Code(s): M25.561 - Pain in right knee; M25.562 - Pain in left knee Plan: X-rays of the right knee done a couple of years ago revealed (+) effusion and some loose bodies but no fractures noted; MRI done in January 2018 showed (+) mild OA changes as well as a flap tear of the posterior horn of the medial meniscus Repeat x-rays of both knees done a few months ago again showed (+) OA changes in both knees and recommended MRI for further evaluation MRI of bilateral knees ordered - patient was advised that if his insurance will not cover the MRI, will then leave it up to orthopedics to decide if the repeat MRI is necessary or not Follow up with orthopedics as scheduled (6) Bilateral hearing loss: Code(s): H91.93 - Unspecified hearing loss, bilateral Qualifiers: Hearing loss type: unspecified Qualified Code(s): H91.93 - Unspecified hearing loss, bilateral Plan: He was previously referred to ENT back in 2020 but states that he was never contacted and never scheduled for an appointment We tried referring him to the speech and hearing center here at [facility] for repeat exam/evaluation but he apparently did not show up for his appointment in June 2023 - this may have corresponded to when patient lost his health insurance Will look into referring him again later on once his issues get settled down (7) Overweight (BMI 25.0-29.9): Code(s): E66.3 - Overweight Plan: Reinforced diet/exercise as tolerated/lose weight Plan Follow up in 3 months Orders: Orders Lipid Panel 3 Months E78.00 - Pure hypercholesterolemia, unspecified Comprehensive [place]. Panel Fast 3 Months E78.00 - Pure hypercholesterolemia, unspecified Hemoglobin A1c 3 Months E11.9 - Type 2 diabetes mellitus without complications Vitamin B12 and Folate 3 Months E53.8 - Deficiency of other specified B group vitamins Vitamin D 25-OH Total 3 Months E55.9 - Vitamin D deficiency, unspecified AMB Hemoglobin A1c Today E11.65 - Type 2 diabetes mellitus with hyperglycemia Complete Blood Count Auto Diff 3 Months D64.9 - Anemia, unspecified Microalbumin, Random (w Creat) 3 Months E11.9 - Type 2 diabetes mellitus without complications TSH reflex Free T4 3 Months E78.00 - Pure hypercholesterolemia, unspecified UA CC w/rflx Micro + Cult 3 Months R30.0 - Dysuria Medications: Refilled ibuprofen 800 mg PO TID 30 days PRN 90 tabs 0RF pain dulaglutide 3 mg (0.5 mL) subcut QWEEK 90 days 6.5 mL 3RF E11.65 - Type 2 diabetes mellitus with hyperglycemia metformin 1,000 mg PO BID 90 days 180 tabs 3RF E11.65 - Type 2 diabetes mellitus with hyperglycemia atorvastatin 20 mg PO DAILY 90 days 90 tabs 1RF E11.65 - Type 2 diabetes mellitus with hyperglycemia, E78.00 - Pure hypercholesterolemia, unspecified lisinopril 5 mg PO DAILY 90 days 90 tabs 3RF E11.65 - Type 2 diabetes mellitus with hyperglycemia, I10 - Essential (primary) hypertension insulin glargine (Lantus Solostar U-100 Insulin) 10 units (0.1 mL) subcut QPM 15 mL 0RF Coding Level of Care Code Est Pt Level 4 (35047) Complex EM visit Add On G2211 Diagnoses Type 2 diabetes mellitus with hyperglycemia, without long-term current use of insulin E11.65 Diabetes mellitus fdc insulin use: without fdc use Diabetes mellitus complication status: with hyperglycemia Pure hypercholesterolemia E78.00 Benign essential hypertension I10 Erectile dysfunction, unspecified erectile dysfunction type N52.9 Erectile dysfunction type: unspecified Pain in both knees, unspecified chronicity M25.561; M25.562 Chronicity: unspecified Bilateral hearing loss, unspecified hearing loss type H91.93 Hearing loss type: unspecified Overweight (BMI 25.0-29.9) E66.3
== END 2023-11-03 17:43 | disposition home or self-care (01) ==
PROVIDERS: PCP Internal Medicine; Visit Provider Internal Medicine
DX: E11.65 Type 2 diabetes mellitus with hyperglycemia (principal); E78.00 Pure hypercholesterolemia, unspecified; I10 Essential (primary) hypertension; N52.9 Male erectile dysfunction, unspecified; M25.561 Pain in right knee; M25.562 Pain in left knee; H91.93 Unspecified hearing loss, bilateral; E66.3 Overweight
CPT/HCPCS: 99214; G2211

== ENCOUNTER 2024-01-19 07:55 | Outpatient (REF) | payer OTHER, SELFPAY ==
[2024-01-19 08:09] LABS: MANUAL DIFF FLAG NO
[2024-01-19 08:47] LABS: Basophils Percent Auto 0.4 % (0-2); Eosinophils Absolute Auto 0.1 X10*3/uL (0.0-0.4); Eosinophils Percent Auto 1.3 % (0-4); Hematocrit 43.4 % (42.0-52.0); Hemoglobin 15.1 g/dl (14.0-18.0); Imm Gran Abs Auto 0.02 X10*3/uL (0.00-0.03); Imm Gran Pct Auto 0.3 % (0.0-0.4); Lymphocytes Absolute Auto 2.7 X10*3/uL (1.2-4.9); Lymphocytes Percent Auto 37.7 % (20-40); Mean Corpuscular HGB Conc 34.8 g/dl (31.0-36.0); Mean Corpuscular Hemoglobin 30.6 pg (27.0-33.0); Mean Platelet Volume 10.7 fL (9.4-12.4); Monocytes Absolute Auto 0.5 X10*3/uL (0.1-1.2); Monocytes Percent Auto 6.5 % (2-11); Neutrophils Absolute Auto 3.9 x10*3/uL (2.0-8.3); Neutrophils Percent Auto 53.8 % (45-73); Platelet Count 224 X10*3/uL (160-400); Red Blood Count 4.93 X10*6/uL (4.60-5.80); Red Cell Distribution Width 12.2 % (11.0-16.0); White Blood Count 7.2 X10*3/uL (4.8-10.8)
[2024-01-19 09:07] LABS: Appearance Urine Clear; Color Urine Yellow; Glucose Urine UA >=1000 mg/dL (Negative); Leukocyte Esterase Urine Negative (Negative); Nitrite Urine Negative (Negative); PH 5.5 (5.0-9.0); Specific Gravity - Urine >= 1.030 (1.005-1.025); UMIC TRIGGER UACC YES; Urine Blood Negative (Negative); Urine Ketones Negative (Negative); Urine Protein Negative (Neg-Trace)
[2024-01-19 09:10] LABS: Bacteria Urine None Seen (None Seen); Hyaline Casts Urine 0-2 /LPF (0-2); RBC Urine 0-2 /HPF (0-2); Squamous Epithelial Cell Urine 0-2 /HPF (0-2); WBC Urine 0-5 /HPF (0-5)
[2024-01-19 09:34] LABS: Alanine Aminotransferase 19 U/L (0-40); Albumin Level 4.3 g/dL (3.5-5.0); Alkaline Phosphatase 69 U/L (39-117); Anion Gap 11 (12-20); Aspartate Amino Transferase 11 U/L (5-37); Bilirubin Total 0.7 mg/dL (0.0-1.0); Blood Urea Nitrogen 14 mg/dL (9-16); Calcium 9.4 mg/dL (8.4-10.2); Carbon Dioxide 28 mmol/L (22-29); Chloride 104 mmol/L (96-108); Cholesterol 157 mg/dL (<200); Estimated Glomerular Filt Rate > 60; Glucose Fasting 231 mg/dL (60-99); HDL Cholesterol 58 mg/dL (>40); LDL Cholesterol Calculated 83 mg/dL (<100); Potassium 4.6 mmol/L (3.3-5.1); Sodium 138 mmol/L (135-145); Total Protein 7.2 g/dL (6.5-8.0); Triglycerides 81 mg/dL (<150)
[2024-01-19 09:34] LABS: Creatinine Urine 57.18 mg/dL; Microalbumin Urine < 5.0 mg/L
[2024-01-19 09:55] LABS: Vitamin D 25-OH Total 45.3 ng/mL (>30)
[2024-01-19 09:58] LABS: Folate 12.1 ng/mL (> or = 4.0); Vitamin B12 616 pg/mL (200-900)
[2024-01-19 10:57] LABS: Estimated Average Glucose 260 mg/dL; Hemoglobin A1c % 10.7 % (<6.0)
== END 2024-01-19 07:56 | disposition home or self-care (01) ==
LOC: HO.LAB 07:55
PROVIDERS: PCP Internal Medicine; Visit Provider Internal Medicine
DX: E78.00 Pure hypercholesterolemia, unspecified (principal); E53.8 Deficiency of other specified B group vitamins; E55.9 Vitamin D deficiency, unspecified; E11.9 Type 2 diabetes mellitus without complications; D64.9 Anemia, unspecified
CPT/HCPCS: 36415; 80053; 80061; 81001; 81003; 82043; 82306; 82570; 82607; 82746; 83036; 84443; 85025

== ENCOUNTER 2024-01-23 15:32 | Outpatient (AMB) | payer OTHER, SELFPAY ==
--- NOTE | 2024-01-23 15:39 | A.OFFVIS_ITS ---
Vital Signs 01/23/24 15:49 Height 5 ft 8 in Weight 189 lb 9.561 oz BMI 28.8 BP 136/72 Blood Pressure Location Rt brachial Position Sitting Pulse 78 Pulse Source Pulse Oximeter Intake Visit Reasons: DM/CONFIRMED Intake Note: New patient referred by PCP for Diabetes Management. Last Diabetic Eye exam: Due Last Podiatry Visit: Does not see a Television News Anchor Random Glucose: 442 mg/dl 3:58 PM, 388 mg/dl 5:14 PM. HgA1C: 10.7% 01/19/24 Geotechnician Required: No Accompanied by: Self / Same As Patient Allergies No Known Allergies [No Known Allergies*] Allergy (Verified 01/23/24 15:50) HPI Comments Details: This is a 58-year-old male with a past medical history of vitamin-D deficiency, hypertension, hyperlipidemia and type 2 diabetes presenting for initial endocrinology consult for diabetic management. Patient was diagnosed with type 2 diabetes 15 years ago. Mother and sister from Type II DM complications. His brother also has Type II diabetes. Patient is not checking BG consistently. He does not have a glucometer today. Hemoglobin a1c 10.7% 01/19/2024. POC 442. Denies symptoms of hyperglycemia. States he had lunch right before this which included bread. Current medication regimen: Trulicity 3 mg weekly, Jardiance 25 mg, Lantus 10 units nightly, metformin 1000 mg twice daily. Compliance issues: He has not been taking Metformin. He misses both daily doses at least half the month. Diet: red bull once daily, juice, yogurt, a lot of carbohydrates, vegetables No soda Nonsmoker No alcohol Hypoglycemia symptoms: none Hyperglycemia symptoms: blurry vision (when he drinks juice and blood sugar increases), polyuria, polydipsia Eye exam: overdue- he will call to schedule his appointment. Microvascular complications: neuropathy Macrovascular complications: none Hypertension: treated with lisinopril 5 mg daily. Hyperlipidemia: treated with atorvastatin 20 mg. LDL at goal <100. ROS: Constitutional: No unexplained weight loss, fevers or chills. Eyes: No vision changes, blurry vision, double vision, eye pain, eye redness, eye discharge. Respiratory: No shortness of breath Cardiovascular: No chest pain, chest pressure or chest discomfort. No palpitations or pedal edema. Gastrointestinal: No anorexia, nausea, vomiting or diarrhea. No abdominal pain or blood in stool. Neurologic: No headache, dizziness, syncope, unilateral weakness, ataxia, numbness or tingling in the extremities. Endocrine: No cold or heat intolerance. Physical exam: Constitutional: Alert, in no distress. Head: Normocephalic. Eyes: Pupils are equal, round and reactive to light. Extraocular muscles intact. Neck: Supple, Full range of motion. No lymphadenopathy. No palpable thyroid masses. Respiratory: Clear to auscultation. Cardiovascular: S1 S2 regular. No murmurs. Feet: Patient declined exam. Denies open wounds, swelling, numbness or tingling. [facility] Medical History (Updated 01/23/24 @ 16:36 by ZACHARY Hanson) Type 2 diabetes mellitus with hyperglycemia Vitamin D deficiency Erectile dysfunction Bilateral hearing loss Overweight (BMI 25.0-29.9) Benign essential hypertension Pure hypercholesterolemia Type 2 diabetes mellitus Surgical History No pertinent past surgical history Family History Father No problems noted. Mother No problems noted. Social History Housing: House Alcohol intake: former Patient Tobacco Use Status: Never used Tobacco e-Cigarette/Vaping Use: Never Used Second Hand Smoke Exposure: No service: No Current occupational status: employed Cognitive needs: No Hearing needs: No Vision needs: No Physical Exam Vital Signs: Last Vital Signs Pulse 78 01/23/24 15:49 BP 136/72 01/23/24 15:49 BMI result Body Mass Index 28.8 Results Reviewed Results Reviewed: Laboratory Last Values Glucose (Clinic) 442 mg/dL (60-115) H* 01/23/24 15:58 Laboratory Tests 01/19/24 01/19/24 08:04 08:08 Creatinine 0.83 Estimated GFR > 60 Hemoglobin A1c % 10.7 H Triglycerides 81 Cholesterol 157 LDL Cholesterol, Calc 83 HDL Cholesterol 58 TSH 1.10 Urine Creatinine 57.18 Urine Microalbumin < 5.0 Microalb/Creat Ratio TNP Assessment & Plan Assessment & Plan (1) Type 2 diabetes mellitus with hyperglycemia: Code(s): E11.65 - Type 2 diabetes mellitus with hyperglycemia Category: Medical Qualifiers: Diabetes mellitus jail insulin use: with long term acute care registered nurse use Qualified Code(s): E11.65 - Type 2 diabetes mellitus with hyperglycemia; Z79.4 - shelter (current) use of insulin Plan In summary this is a 58-year-old male with uncontrolled type 2 diabetes with no known complications and hyperglycemia today. We discussed that his blood sugar is very high today, and per our office protocol he is given 10 units of Humalog and drank water. Lot # [id number] Exp 04/11/25. Patient monitored. Repeat BG down to 388. Patient feeling well. We reviewed the risks of uncontrolled diabetes, hyperglycemia, DKA which can progress to coma and . We reviewed the importance of checking blood glucose regularly. He has a working glucometer. I prescribed a Dexcom G7. Patient referred to diabetic education and cake decorator. Discussed pathophysiology of Type II Diabetes Mellitus with the patient in detail.? I explained the jail risks and complications associated with uncontrolled diabetes including nephropathy, neuropathy, peripheral vascular disease, retinopathy, increased risk of heart disease and stroke.? Discussed lifestyle modification with the patient. Recommended 30 minutes of moderately vigorous exercise 5 days per week to promote weight loss. I explained the importance of taking his medications consistently. He agrees to start taking metformin 1000 mg twice daily. Patient says he was not taking it every day because he was concerned about potential side effects. We reviewed these in detail today. He will contact the office if he has any difficulty with the medication. Continue Jardiance 25 mg daily, Trulicity 3 mg weekly. Increase Lantus to 15 units nightly. If after 5 days he is not experiencing hypoglycemic episodes and BG are still over 180 he will increase to 20 units of lantus nightly. We reviewed treatment of hypo/hyperglycemia. Written instructions given. Glucose tablets sent to pharmacy. Patient instructed to follow up with me in 3 weeks for diabetes. Orders: Referrals Diabetes Education Referral E11.65 - Type 2 diabetes mellitus with hyperglycemia Electrical Maintenance Mechanic Nutrition Referral E11.65 - Type 2 diabetes mellitus with hyperglycemia Medications: New blood-glucose sensor (Dexcom G7 Sensor device) apply new sensor every 10 days as directed 3 ea 11RF blood-glucose meter,continuous (Dexcom G7 Cook Fry) As directed 1 ea 0RF glucose (Dex4 Glucose) until symptoms of low blood sugar are controlled 16 grams (4 x 4 gram) PO Q15M PRN 60 tabs 1RF hypoglycemia Changed From insulin glargine (Lantus Solostar U-100 Insulin) 10 units (0.1 mL) subcut QPM 15 mL 0RF To insulin glargine (Lantus Solostar U-100 Insulin) 15 units (0.15 mL) subcut QPM 15 mL 5RF Patient Instructions: I am going to send Decxom G7 reader and sensors to the pharmacy to monitor your blood sugars. Please increase Lantus from 10 units to 15 units nightly. If after 5 days blood sugars are still over 180 and you are not having low blood sugars (under 70), increase Lantus to 20 units nightly. Take Metformin 1000 mg twice daily every day. Continue Jardiance 25 mg daily and Trulicity 3 mg weekly I am going to send glucose tablets to the pharmacy in case you have a low blood sugar. If you experience low blood sugar, treat this by eating a chewable fruit candy like skittles or jelly beans (about 8 pieces), 4 ounces (1/2 cup) of fruit juice (not diet), 1 tablespoon of honey or 4 glucose tablets. If your blood sugar is under 50, take double the amount of one of the above. Recheck your blood sugar in 15 minutes. Website for diabetes information and diet information: www.diabetes.org Coding Level of Care Code New Pt Level 5 (58169) Complex EM visit Add On G2211 Diagnoses Type 2 diabetes mellitus with hyperglycemia, with long-term current use of insulin E11.65; Z79.4 Diabetes mellitus long term acute care registered nurse insulin use: with jail use Time Spent (min) 65 Comment reviewing chart, direct patient care, completing documentation
[2024-01-23 15:49] VITALS: BP 136/72; PULSE 78; BMI 28.8
[2024-01-23 16:02] LABS: Glucose, Whole Blood 442 mg/dL (60-115)
[2024-01-23 17:17] LABS: Glucose, Whole Blood 388 mg/dL (60-115)
== END 2024-01-23 17:17 | disposition home or self-care (01) ==
PROVIDERS: PCP Internal Medicine; Visit Provider Physician Assistant Medical
DX: E11.65 Type 2 diabetes mellitus with hyperglycemia (principal); Z79.4 Long term (current) use of insulin

== ENCOUNTER → 2024-01-23 15:32 | Outpatient (BNVA) | payer OTHER, SELFPAY | PROVIDERS: PCP Internal Medicine; Visit Provider Physician Assistant Medical | DX: E11.65 Type 2 diabetes mellitus with hyperglycemia (principal); I10 Essential (primary) hypertension; E55.9 Vitamin D deficiency, unspecified; Z79.4 Long term (current) use of insulin | CPT/HCPCS: 82947; 99202 ==

== ENCOUNTER 2024-02-08 09:29 | Outpatient (AMB) | payer OTHER, SELFPAY ==
--- NOTE | 2024-02-08 09:33 | A.OFFVIS_ITS ---
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 Typical meal AM Sand or crackers with egg/ham, ice tea and banana Lunch Skips , has juice dinner: fast food or mashed potato/chicken, juice snack: cereal with milk physical activity: daily eoth /smoking---- BS Monitoring Most Recent Diabetes Results: Microalb/Creat Ratio TNP 01/19/24 Cholesterol 157 mg/dL (<200) 01/19/24 HDL Cholesterol 58 mg/dL (>40) 01/19/24 Triglycerides 81 mg/dL (<150) 01/19/24 Creatinine 0.83 mg/dL (0.5-1.4) 01/19/24 Blood Urea Nitrogen 14 mg/dL (9-16) 01/19/24 Sodium 138 mmol/L (135-145) 01/19/24 Potassium 4.6 mmol/L (3.3-5.1) 01/19/24 Chloride 104 mmol/L (96-108) 01/19/24 Carbon Dioxide 28 mmol/L (22-29) 01/19/24 Calcium 9.4 mg/dL (8.4-10.2) 01/19/24 AST 11 U/L (5-37) 01/19/24 ALT 19 U/L (0-40) 01/19/24 Total Protein 7.2 g/dL (6.5-8.0) 01/19/24 Albumin 4.3 g/dL (3.5-5.0) 01/19/24 PWS-Wqudmgg-Eu.Jeor Equation Height: 5 ft 8 in Weight: 188 lb Resting Metabolic Rate: 1641.20 Calculated Activity Level: Moderate Activity Calories Needed to Maintain Weight: 2543.86 Diagnosis Nutrition problem #1: food nutri know defi As related to (etiology) #1: diagnosis As evidenced by (sign/symptom) #1: knowledge deficit of diet [facility] Medical History (Updated 01/23/24 @ 16:36 by ZACHAYR Hanson) Type 2 diabetes mellitus with hyperglycemia Vitamin D deficiency Erectile dysfunction Bilateral hearing loss Overweight (BMI 25.0-29.9) Benign essential hypertension Pure hypercholesterolemia Type 2 diabetes mellitus Surgical History No pertinent past surgical history Family History Father No problems noted. Mother No problems noted. Social History Housing: House Alcohol intake: former Patient Tobacco Use Status: Never used Tobacco e-Cigarette/Vaping Use: Never Used Second Hand Smoke Exposure: No service: No Current occupational status: employed Cognitive needs: No Hearing needs: No Vision needs: No Assessment & Plan Assessment & Plan (1) Type 2 diabetes mellitus with hyperglycemia: Code(s): E11.65 - Type 2 diabetes mellitus with hyperglycemia Category: Medical Qualifiers: Diabetes mellitus care home insulin use: with care home use Qualified Code(s): E11.65 - Type 2 diabetes mellitus with hyperglycemia; Z79.4 - halfway (current) use of insulin Plan: Wt: 85Kg ( 02/21 ) Est kcal needs as per MSJ: 2500 (40% carb, 30% protein/fat) Est fluid needs as per 25-30 ml/d: 2600 Est prot per day as per 1 g/kg bw: 85 Recommend fiber intake : 8-10 g per day and gradually increase to 25-28 g per day for women and 35-38 g for men or as tolerated Recommend sodium intake per day : less than 2300 mg Educated patient on: ( R = reviewed V = verbalizes understanding N/R = needs review N/A = not applicable * Food sources of carbohydrate, adequate serving sizes and its role in various health conditions: R * Differences between complex carbohydrates a simple carbohydrates, role of fiber in diet: R V N/R * Lean protein sources of foods: R * Differences between types of fats and role in diet (mono on saturated fat fatty acids, saturated fatty acids, trans fats): R V N/R * Food sources of sodium in salt and healthy modifications for heart health in kidney health: R V R/V * Vitamins and minerals: R V N/R * Healthy plate method concept: R * Physical activity: Benefits a precaution: R * Hypoglycemia protocol (rule of 15): R V N/R * Dietary prevention of Hyperglycemia: R Patient Instructions: Work on having 3 meals per day , not skipping meals , following healthy plate method See meal ideas and low sugar beverage options Coding Level of Care Code Nutr Indiv Intake (02551) Diagnoses Type 2 diabetes mellitus with hyperglycemia, with long-term current use of insulin E11.65; Z79.4 Diabetes mellitus care home insulin use: with dry starch operator use Time Spent (min) 30
[2024-02-08 09:34] VITALS: BMI 28.5
[2024-02-08 10:37] VITALS: BMI 28.6
== END 2024-02-08 10:27 | disposition home or self-care (01) ==
PROVIDERS: PCP Internal Medicine; Visit Provider Dietitian, Registered
DX: E11.65 Type 2 diabetes mellitus with hyperglycemia (principal); Z79.4 Long term (current) use of insulin

== ENCOUNTER → 2024-02-08 09:29 | Outpatient (BNVA) | payer OTHER, SELFPAY | PROVIDERS: PCP Internal Medicine; Visit Provider Dietitian, Registered | DX: E11.65 Type 2 diabetes mellitus with hyperglycemia (principal); E66.3 Overweight; E55.9 Vitamin D deficiency, unspecified; Z68.28 Body mass index [BMI] 28.0-28.9, adult; Z79.4 Long term (current) use of insulin | CPT/HCPCS: 97802 ==

== ENCOUNTER 2024-04-02 07:53 | Outpatient (REF) | payer OTHER, SELFPAY ==
[2024-04-02 08:13] LABS: MANUAL DIFF FLAG NO
[2024-04-02 08:37] LABS: Basophils Absolute Auto 0.1 X10*3/uL (0.0-0.2); Basophils Percent Auto 0.6 % (0-2); Eosinophils Absolute Auto 0.1 X10*3/uL (0.0-0.4); Eosinophils Percent Auto 1.8 % (0-4); Hematocrit 46.2 % (42.0-52.0); Hemoglobin 15.4 g/dl (14.0-18.0); Imm Gran Abs Auto 0.04 X10*3/uL (0.00-0.03); Imm Gran Pct Auto 0.5 % (0.0-0.4); Lymphocytes Absolute Auto 2.5 X10*3/uL (1.2-4.9); Lymphocytes Percent Auto 32.2 % (20-40); Mean Corpuscular HGB Conc 33.3 g/dl (31.0-36.0); Mean Corpuscular Volume 89.9 fL (80.0-98.0); Mean Platelet Volume 10.3 fL (9.4-12.4); Monocytes Absolute Auto 0.6 X10*3/uL (0.1-1.2); Monocytes Percent Auto 7.2 % (2-11); Neutrophils Absolute Auto 4.5 x10*3/uL (2.0-8.3); Neutrophils Percent Auto 57.7 % (45-73); Platelet Count 201 X10*3/uL (160-400); Red Blood Count 5.14 X10*6/uL (4.60-5.80); Red Cell Distribution Width 12.6 % (11.0-16.0); White Blood Count 7.8 X10*3/uL (4.8-10.8)
[2024-04-02 08:43] LABS: Appearance Urine Clear; Color Urine Yellow; Glucose Urine UA >=1000 mg/dL (Negative); Leukocyte Esterase Urine Negative (Negative); Nitrite Urine Negative (Negative); PH 5.5 (5.0-9.0); Specific Gravity - Urine >= 1.030 (1.005-1.025); UMIC TRIGGER UACC YES; Urine Blood Negative (Negative); Urine Ketones Negative (Negative); Urine Protein Negative (Neg-Trace)
[2024-04-02 09:03] LABS: Bacteria Urine None Seen (None Seen); Hyaline Casts Urine 0-2 /LPF (0-2); RBC Urine 0-2 /HPF (0-2); Squamous Epithelial Cell Urine 0-2 /HPF (0-2); WBC Urine 0-5 /HPF (0-5)
[2024-04-02 09:09] LABS: Estimated Average Glucose 217 mg/dL; Hemoglobin A1C 297.6928 umol/L; Hemoglobin A1c % 9.2 % (<6.0); Total Hemoglobin (HGBA1C) 3866.4124 umol/L
[2024-04-02 09:21] LABS: Creatinine Urine 59.35 mg/dL; Microalbumin Urine < 5.0 mg/L
[2024-04-02 09:22] LABS: Alanine Aminotransferase 20 U/L (0-40); Albumin Level 4.4 g/dL (3.5-5.0); Alkaline Phosphatase 55 U/L (39-117); Anion Gap 13 (12-20); Aspartate Amino Transferase 15 U/L (5-37); Bilirubin Total 0.5 mg/dL (0.0-1.0); Blood Urea Nitrogen 12 mg/dL (9-16); Calcium 9.8 mg/dL (8.4-10.2); Carbon Dioxide 27 mmol/L (22-29); Chloride 102 mmol/L (96-108); Cholesterol 126 mg/dL (<200); Estimated Glomerular Filt Rate > 60; Glucose Fasting 201 mg/dL (60-99); HDL Cholesterol 54 mg/dL (>40); LDL Cholesterol Calculated 61 mg/dL (<100); Sodium 138 mmol/L (135-145); Total Protein 7.2 g/dL (6.5-8.0); Triglycerides 59 mg/dL (<150)
[2024-04-02 09:39] LABS: TSH reflex Free T4 1.21 uIU/mL (0.32-4.0); Vitamin D 25-OH Total 44.5 ng/mL (>30)
== END 2024-04-02 07:54 | disposition home or self-care (01) ==
LOC: HO.LAB 07:53
PROVIDERS: PCP Internal Medicine; Visit Provider Internal Medicine
DX: E78.00 Pure hypercholesterolemia, unspecified (principal); E11.9 Type 2 diabetes mellitus without complications; E55.9 Vitamin D deficiency, unspecified; D64.9 Anemia, unspecified; R30.0 Dysuria
CPT/HCPCS: 36415; 80053; 80061; 81001; 82043; 82306; 82570; 83036; 84443; 85025

== ENCOUNTER 2024-04-04 11:06 | Outpatient (AMB) | payer OTHER, SELFPAY ==
[2024-04-04 11:07] VITALS: BP 106/72; PULSE 99; O2SAT 96; BMI 28.3
--- NOTE | 2024-04-04 11:07 | MHC.PC.OV ---
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 Accompanied by: Self / Same As Patient Allergies No Known Allergies [No Known Allergies*] Allergy (Verified 04/04/24 11:25) Medication List - Last Reconciled 04/04/24 by Víctor Klein MD atorvastatin 20 mg PO DAILY 90 days blood-glucose meter (FreeStyle Lite Meter kit) As directed blood-glucose meter,continuous (Dexcom G7 Tacking Machine Operator) As directed blood-glucose sensor (Dexcom G7 Sensor device) apply new sensor every 10 days as directed cholecalciferol (vitamin D3) 50 mcg PO DAILY 90 days dulaglutide 3 mg (0.5 mL) subcut QWEEK 90 days empagliflozin (Jardiance) 25 mg PO DAILY 90 days glucose (Dex4 Glucose) 16 grams (4 x 4 gram) PO Q15M PRN ibuprofen 800 mg PO TID PRN 30 days insulin glargine (Lantus Solostar U-100 Insulin) 15 units (0.15 mL) subcut QPM lisinopril 5 mg PO DAILY 90 days metformin 1,000 mg PO BID 90 days pen needle, diabetic (BD Ultra-Fine Sri Pen Needle) As directed once a day sildenafil 50 mg PO DAILY PRN 30 days Tobacco use date assessed: 04/04/24 Dental Screening Dental Screen Date: 04/04/24 Did you have a dental visit in the last 12 months?: No Did you have a dental problem in the last 6 months where you did not have access to dental care?: No Was dental information given to patient?: No HPI 3 month f/u HPI Details Patient comes in today for his follow-up visit States that he feels okay but continues to experience frequent pain in both knees He was seen by Orthopedics earlier this year and had cortisone injection into his knees without any significant or prolonged relief relief He denies any headaches or dizziness Denies any chest pains, no shortness of breath No nausea/vomiting, no abdominal pain No change in bowel habits noted He had his follow-up labs done a couple of days ago - to discuss his results [facility] Medical History Type 2 diabetes mellitus with hyperglycemia Vitamin D deficiency Erectile dysfunction Bilateral hearing loss Overweight (BMI 25.0-29.9) Benign essential hypertension Pure hypercholesterolemia Type 2 diabetes mellitus Surgical History No pertinent past surgical history Family History Father No problems noted. Mother No problems noted. Social History Housing: House Alcohol intake: former Patient Tobacco Use Status: Never used Tobacco e-Cigarette/Vaping Use: Never Used Second Hand Smoke Exposure: No service: No Current occupational status: employed Cognitive needs: No Hearing needs: No Vision needs: No Questionnaire PHQ-9 Over the last 2 weeks, how often have you been bothered by any of the following problems? 1. Little interest or pleasure in doing things: not at all 2. Feeling down, depressed, or hopeless: not at all 3. Trouble falling or staying asleep, or sleeping too much: not at all 4. Feeling tired or having little energy: not at all 5. Poor appetite or overeating: not at all 6. Feeling bad about yourself - or that you are a failure or have let yourself or your family down: not at all 7. Trouble concentrating on things, such as reading the newspaper or watching television: not at all 8. Moving or speaking so slowly that other people could have noticed. Or the opposite - being so fidgety or restless that you have been moving around a lot more than usual: not at all 9. Thoughts that you would be better off or of hurting yourself in some way: not at all Total score: 0 Depression Screening Interpretation: Negative Depression Screening Done: Yes 48800 - PHQ-9 Billing: Yes Source: Developed by Drs. Jcarlos Clarke, Malissa Cohen, Tejinder Sierra and colleagues, with an educational natali from [employer]. Thrive Questionnaire Date Thrive assessed: 04/04/24 I am a: Patient What is your living situation today?: I have a steady place to live Within the past 12 months, did the food you bought not last and you didn't have the money to get more?: Never true Within the past 12 months, did you worry whether your food would run out before you got money to buy more?: Never true Do you have trouble paying for medicines?: No Do you have trouble getting transportation to medical appointments?: No Do you have trouble paying your heating and electricity bill?: No Do you have trouble taking care of your child, family member or friend?: No Do you have trouble with day-to-day activities such as bathing, preparing meals, shopping, managing finances, etc.?: No Are you currently unemployed and looking for a job?: No Are you interested in more education?: No Please select the resources that you would like help with: None Currently or been in a relationship where the following occur: No concerns reported THRIVE Score: 0 AUDIT C Alcohol Use Questionnaire (AUDIT-C) 1. How often do you have a drink containing alcohol?: Never 3. How often do you have six or more drinks on one occasion?: Never Total Score: 0 Score Reviewed/Action Taken: Yes FLORIN-7 AMB Questionnaire FLORIN-7 Date FLORIN - 7 assessed: 04/04/24 Feeling nervous, anxious, or on edge: 0 = Not at all Not being able to stop or control worryin = Not at all Worrying too much about different things: 0 = Not at all Trouble relaxin = Not at all Being so restless that it is hard to sit still: 0 = Not at all Becoming easily annoyed or irritable: 0 = Not at all Feeling afraid as if something awful might happen: 0 = Not at all Total FLORIN-7 score (0-4 normal; 5-9 mild; 10-14 moderate; 15-21 severe): 0 Source: Developed by Drs. Jcarlos Clarke, Malissa Cohen, Tejinder Sierra and colleagues, with an educational natali from [employer]. Review of Systems Const Denies chills, Denies fatigue, Denies fever(s) and Denies headache(s) ENT Denies dysphagia, Denies dizziness, Denies otalgia, Denies headache(s), Denies neck pain, Denies odynophagia and Denies sore throat Card Denies chest pain, Denies rapid heart rate, Denies irregular heart rhythm, Denies palpitations and Denies dyspnea Resp Denies cough, Denies dyspnea and Denies wheezing GI Denies abdominal pain, Denies constipation, Denies dysphagia, Denies heartburn, Denies diarrhea, Denies nausea, Denies odynophagia and Denies vomiting Denies hematuria, Denies difficulty urinating, Denies dysuria, Reports nocturia (at times) and Denies urinary frequency Musc Denies back pain, Reports arthralgias (bilateral knee pain, increasing), Denies joint swelling and Denies neck pain Skin/Breast Denies rash Neuro Denies dizziness, Denies headache(s) and Denies paresthesias Endo Denies fatigue and Denies palpitations Aller/Immun Denies wheezing Physical exam (Primary Care) Vital Signs: Last Vital Signs Pulse 99 04/04/24 11:07 BP 106/72 04/04/24 11:07 Pulse Ox 96 04/04/24 11:07 Oxygen Delivery Method Room Air 04/04/24 11:07 BMI result Body Mass Index 28.3 Tobacco/Smoking Status: Tobacco use Status Tobacco use date assessed 04/04/24 04/04/24 11:12 Patient Tobacco Use Status Never used Tobacco 04/04/24 11:12 e-Cigarette/Vaping Use Never Used 04/04/24 11:12 PHQ-9: PHQ-9 Score PHQ-9: Total score 0 04/04/24 11:28 Depression Screening Interpretation: Negative Thrive Assessment: Date of Thrive Assessment Date Thrive assessed 04/04/24 04/04/24 11:12 Currently or been in a relationship where the following occur: No concerns reported Const General: no acute distress and alert HENMT Ears: TM's normal bilaterally and EAC's normal Throat: Yes posterior oropharynx normal and Yes tonsils normal (no TP congestion) Neck Neck: Yes no lymphadenopathy and Yes supple Thyroid: Thyroid normal Resp Auscultation: clear to auscultation bilaterally, no rales and no wheezes Cardio Rate: regular rate Rhythm: regular rhythm Heart sounds: no murmurs GI Palpation (GI): Soft to palpation and nontender Auscultation: normal bowel sounds General: Yes no CVA tenderness Back/Spine/Pelvis Back: no CVA tenderness Thoracic/Lumbar Spine: No lumbar spinal tenderness Skin Rashes: no rashes Extrem General: Yes no clubbing, cyanosis or edema Right lower extremity: knee Details: tenderness; no swelling Left lower extremity: knee Details: tenderness; no swelling Results Reviewed Results Reviewed: Laboratory Tests 04/02/24 08:12 WBC 7.8 Hgb 15.4 Hct 46.2 Plt Count 201 Sodium 138 Potassium 4.0 Creatinine 0.84 Estimated GFR > 60 Fasting Glucose 201 H Hemoglobin A1c % 9.2 H Calcium 9.8 AST 15 ALT 20 Triglycerides 59 Cholesterol 126 LDL Cholesterol, Calc 61 HDL Cholesterol 54 25-OH Vitamin D Total 44.5 TSH 1.21 Ur Specific Roland >= 1.030 H Urine Protein Negative Urine Glucose (UA) >=1000 H Urine Blood Negative Urine Nitrite Negative Ur Leukocyte Esterase Negative Coding Level of Care Code Est Pt Level 4 (90009) Complex EM visit Add On G2211 Diagnoses Type 2 diabetes mellitus with hyperglycemia, with long-term current use of insulin E11.65; Z79.4 Diabetes mellitus exterminator insulin use: with shelter use Pure hypercholesterolemia E78.00 Benign essential hypertension I10 Erectile dysfunction, unspecified erectile dysfunction type N52.9 Erectile dysfunction type: unspecified Bilateral primary osteoarthritis of knee M17.0 Bilateral hearing loss, unspecified hearing loss type H91.93 Hearing loss type: unspecified Overweight (BMI 25.0-29.9) E66.3 Additional Codes PHQ-9 - 27868 - PHQ-9 Billing: Yes ([id number]) Assessment & Plan Assessment & Plan (1) Type 2 diabetes mellitus with hyperglycemia: Code(s): E11.65 - Type 2 diabetes mellitus with hyperglycemia Category: Medical Qualifiers: Diabetes mellitus shelter insulin use: with shelter use Qualified Code(s): E11.65 - Type 2 diabetes mellitus with hyperglycemia; Z79.4 - exterminator (current) use of insulin Plan: His HgbA1c was at 9.2% on his labs done a few days ago (in-office HgbA1c was previously at 10.0% a few months ago) - goal is <7.0% Reinforced diabetic diet Continue Trulicity 3.0 mg SQ once a week, Metformin 1000 mg BID, Jardiance 25 mg QD and Lantus 15 units QD Follow up with endocrinology as scheduled (2) Pure hypercholesterolemia: Code(s): E78.00 - Pure hypercholesterolemia, unspecified Category: Medical Plan: Results of his labs done a couple of days ago reviewed and discussed with patient Reinforced low cholesterol diet Continue Atorvastatin 20 mg QD Will recheck his labs and fasting lipids in 4 months for follow up (3) Benign essential hypertension: Code(s): I10 - Essential (primary) hypertension Category: Medical Plan: Reinforced low sodium diet - goal is systolic BP of 120 mm or less Continue Lisinopril 5 mg QD (4) Erectile dysfunction: Code(s): N52.9 - Male erectile dysfunction, unspecified Category: Medical Qualifiers: Erectile dysfunction type: unspecified Qualified Code(s): N52.9 - Male erectile dysfunction, unspecified Plan: He is advised again that this mostly has to do with his hyperlipidemia and suboptimally controlled diabetes and should improve once these are better controlled Continue Sildenafil 50 mg QD PRN (5) Bilateral primary osteoarthritis of knee: Code(s): M17.0 - Bilateral primary osteoarthritis of knee Category: Medical Plan: X-rays of the right knee done a couple of years ago revealed (+) effusion and some loose bodies but no fractures noted; MRI done in January 2018 showed (+) mild OA changes as well as a flap tear of the posterior horn of the medial meniscus Repeat x-rays of both knees done earlier this year again showed (+) OA changes in both knees and recommended MRI for further evaluation MRI of bilateral knees was ordered previously but insurance denied the procedure He was seen by orthopedics and had cortisone injections into his knees back in June 2023, which he states did not really help much Follow up with orthopedics as scheduled Will try sending him for physical therapy evaluation and management of his knee pain and if physical therapy does not help, we can then try to send him again for MRI of the knees for further evaluation (6) Bilateral hearing loss: Code(s): H91.93 - Unspecified hearing loss, bilateral Category: Medical Qualifiers: Hearing loss type: unspecified Qualified Code(s): H91.93 - Unspecified hearing loss, bilateral Plan: He was previously referred to ENT back in 2020 but states that he was never contacted and never scheduled for an appointment We tried referring him to the speech and hearing center here at [facility] – [place], [place] for repeat exam/evaluation but he apparently did not show up for his appointment in June 2023 - this may have corresponded to when patient lost his health insurance Will look into referring him again later on once his issues get settled down (7) Overweight (BMI 25.0-29.9): Code(s): E66.3 - Overweight Category: Medical Plan: Reinforced diet/exercise as tolerated/lose weight Plan Follow up in 4 months Orders: Orders Complete Blood Count Auto Diff 4 Months D64.9 - Anemia, unspecified Lipid Panel 4 Months E78.00 - Pure hypercholesterolemia, unspecified TSH reflex Free T4 4 Months E78.00 - Pure hypercholesterolemia, unspecified UA CC w/rflx Micro + Cult 4 Months R30.0 - Dysuria PT Evaluation and Treatment 04/04/24 M17.0 - Bilateral primary osteoarthritis of knee Comprehensive [place]. Panel Fast 4 Months E78.00 - Pure hypercholesterolemia, unspecified Hemoglobin A1c 4 Months E11.9 - Type 2 diabetes mellitus without complications
== END 2024-04-04 11:42 | disposition home or self-care (01) ==
PROVIDERS: PCP Internal Medicine; Visit Provider Internal Medicine
DX: E11.65 Type 2 diabetes mellitus with hyperglycemia (principal); Z79.4 Long term (current) use of insulin; E78.00 Pure hypercholesterolemia, unspecified; I10 Essential (primary) hypertension; N52.9 Male erectile dysfunction, unspecified; M17.0 Bilateral primary osteoarthritis of knee; H91.93 Unspecified hearing loss, bilateral; E66.3 Overweight

== ENCOUNTER → 2024-04-04 11:06 | Outpatient (BNVA) | payer OTHER, SELFPAY | PROVIDERS: PCP Internal Medicine; Visit Provider Internal Medicine | DX: E11.65 Type 2 diabetes mellitus with hyperglycemia (principal); E78.00 Pure hypercholesterolemia, unspecified; I10 Essential (primary) hypertension; N52.9 Male erectile dysfunction, unspecified; M17.0 Bilateral primary osteoarthritis of knee; H91.93 Unspecified hearing loss, bilateral; E66.3 Overweight; Z79.4 Long term (current) use of insulin | CPT/HCPCS: 96127; 99212 ==

== ENCOUNTER 2024-08-03 07:41 | Outpatient (REF) | payer OTHER, SELFPAY ==
[2024-08-03 07:56] LABS: MANUAL DIFF FLAG NO
[2024-08-03 08:39] LABS: Basophils Absolute Auto 0.1 X10*3/uL (0.0-0.2); Basophils Percent Auto 0.7 % (0-2); Eosinophils Absolute Auto 0.1 X10*3/uL (0.0-0.4); Eosinophils Percent Auto 1.3 % (0-4); Hematocrit 43.1 % (42.0-52.0); Hemoglobin 14.7 g/dl (14.0-18.0); Imm Gran Abs Auto 0.01 X10*3/uL (0.00-0.03); Imm Gran Pct Auto 0.1 % (0.0-0.4); Lymphocytes Absolute Auto 2.8 X10*3/uL (1.2-4.9); Lymphocytes Percent Auto 37.3 % (20-40); Mean Corpuscular HGB Conc 34.1 g/dl (31.0-36.0); Mean Corpuscular Hemoglobin 30.1 pg (27.0-33.0); Mean Corpuscular Volume 88.3 fL (80.0-98.0); Mean Platelet Volume 10.7 fL (9.4-12.4); Monocytes Absolute Auto 0.5 X10*3/uL (0.1-1.2); Monocytes Percent Auto 6.7 % (2-11); Neutrophils Percent Auto 53.9 % (45-73); Platelet Count 233 X10*3/uL (160-400); Red Blood Count 4.88 X10*6/uL (4.60-5.80); Red Cell Distribution Width 12.6 % (11.0-16.0); White Blood Count 7.4 X10*3/uL (4.8-10.8)
[2024-08-03 08:47] LABS: Estimated Average Glucose 229 mg/dL; Hemoglobin A1C 314.2498 umol/L; Hemoglobin A1c % 9.6 % (<6.0)
[2024-08-03 08:51] LABS: Appearance Urine Clear; Color Urine Yellow; Glucose Urine UA >=1000 mg/dL (Negative); Leukocyte Esterase Urine Negative (Negative); Nitrite Urine Negative (Negative); PH 5.5 (5.0-9.0); Specific Gravity - Urine >= 1.030 (1.005-1.025); UMIC TRIGGER UACC YES; Urine Blood Negative (Negative); Urine Ketones Negative (Negative); Urine Protein Negative (Neg-Trace)
[2024-08-03 08:57] LABS: Bacteria Urine None Seen (None Seen); Hyaline Casts Urine 0-2 /LPF (0-2); RBC Urine 0-2 /HPF (0-2); Squamous Epithelial Cell Urine 0-2 /HPF (0-2); WBC Urine 0-5 /HPF (0-5)
[2024-08-03 09:53] LABS: Alanine Aminotransferase 18 U/L (0-40); Albumin Level 4.2 g/dL (3.5-5.0); Alkaline Phosphatase 48 U/L (39-117); Anion Gap 13 (12-20); Aspartate Amino Transferase 16 U/L (5-37); Bilirubin Total 0.6 mg/dL (0.0-1.0); Blood Urea Nitrogen 18 mg/dL (9-16); Calcium 9.1 mg/dL (8.4-10.2); Carbon Dioxide 25 mmol/L (22-29); Chloride 105 mmol/L (96-108); Cholesterol 111 mg/dL (<200); Estimated Glomerular Filt Rate > 60; Glucose Fasting 162 mg/dL (60-99); HDL Cholesterol 50 mg/dL (>40); LDL Cholesterol Calculated 53 mg/dL (<100); Sodium 139 mmol/L (135-145); Total Protein 6.7 g/dL (6.5-8.0); Triglycerides 43 mg/dL (<150)
[2024-08-03 09:54] LABS: TSH reflex Free T4 1.06 uIU/mL (0.32-4.0)
== END 2024-08-03 07:42 | disposition home or self-care (01) ==
LOC: HO.LAB 07:41
PROVIDERS: PCP Internal Medicine; Visit Provider Internal Medicine
DX: D64.9 Anemia, unspecified (principal); E78.00 Pure hypercholesterolemia, unspecified; E11.9 Type 2 diabetes mellitus without complications
CPT/HCPCS: 36415; 80053; 80061; 81001; 83036; 84443; 85025

== ENCOUNTER 2024-08-06 09:45 | Outpatient (AMB) | payer OTHER, SELFPAY ==
[2024-08-06 09:46] VITALS: BP 130/60; PULSE 102; O2SAT 96; BMI 28.6
--- NOTE | 2024-08-06 09:46 | A.OFFPC_ITS ---
Vital Signs 08/06/24 09:46 Height 5 ft 8 in Weight 188 lb BMI 28.6 BP 130/60 Blood Pressure Location Lt brachial Position Sitting Pulse 102 H Pulse Source Pulse Oximeter Pulse Oximetry (%) 96 Oxygen Delivery Method Room Air Intake Visit Reasons: DM, hyperlipidemia, OA Head Charrer Required: No Accompanied by: Self / Same As Patient Allergies No Known Allergies [No Known Allergies*] Allergy (Verified 08/06/24 10:09) Medication List - Last Reconciled 08/06/24 by Víctor Klein MD atorvastatin 20 mg PO DAILY 90 days blood-glucose meter (FreeStyle Lite Meter kit) As directed blood-glucose sensor (Dexcom G7 Sensor device) apply new sensor every 10 days as directed blood-glucose,middle school special education teacher,cont (Dexcom G7 Electric Utility Lineworker) As directed cholecalciferol (vitamin D3) 50 mcg PO DAILY 90 days dulaglutide 3 mg (0.5 mL) subcut QWEEK 90 days empagliflozin (Jardiance) 25 mg PO DAILY 90 days glucose (Dex4 Glucose) 16 grams (4 x 4 gram) PO Q15M PRN ibuprofen 800 mg PO TID PRN 30 days insulin glargine (Lantus Solostar U-100 Insulin) 15 units (0.15 mL) subcut QPM lisinopril 5 mg PO DAILY 90 days metformin 1,000 mg PO BID 90 days pen needle, diabetic (BD Ultra-Fine Sri Pen Needle) As directed once a day sildenafil 50 mg PO DAILY PRN 30 days Tobacco use date assessed: 08/06/24 Dental Screening Dental Screen Date: 08/06/24 Did you have a dental visit in the last 12 months?: No Did you have a dental problem in the last 6 months where you did not have access to dental care?: No Was dental information given to patient?: No HPI DM, hyperlipidemia, OA HPI Details Patient comes in today for his follow-up visit States that he feels okay He denies any headaches or dizziness Denies any chest pains, no shortness of breath No nausea/vomiting, no abdominal pain No change in bowel habits noted He continues to experience frequent pain in both knees - is now seeing Oryara ballesteros and he received some cortisone injection into his knees last year without any significant or prolonged relief States that he has been trying to reach out to orthopedics for the past couple of months to schedule a follow up appointment with them without any success - reports that no one has been getting back to him He had his follow-up labs done a few days ago - to discuss his results [facility] Medical History Type 2 diabetes mellitus with hyperglycemia Vitamin D deficiency Erectile dysfunction Bilateral hearing loss Overweight (BMI 25.0-29.9) Benign essential hypertension Pure hypercholesterolemia Type 2 diabetes mellitus Surgical History No pertinent past surgical history Family History Father No problems noted. Mother No problems noted. Social History Housing: House Alcohol intake: former Patient Tobacco Use Status: Never used Tobacco e-Cigarette/Vaping Use: Never Used Second Hand Smoke Exposure: No service: No Current occupational status: employed Cognitive needs: No Hearing needs: No Vision needs: No Questionnaire PHQ-9 Over the last 2 weeks, how often have you been bothered by any of the following problems? 1. Little interest or pleasure in doing things: not at all 2. Feeling down, depressed, or hopeless: not at all 3. Trouble falling or staying asleep, or sleeping too much: not at all 4. Feeling tired or having little energy: not at all 5. Poor appetite or overeating: not at all 6. Feeling bad about yourself - or that you are a failure or have let yourself or your family down: not at all 7. Trouble concentrating on things, such as reading the newspaper or watching television: not at all 8. Moving or speaking so slowly that other people could have noticed. Or the opposite - being so fidgety or restless that you have been moving around a lot more than usual: not at all 9. Thoughts that you would be better off or of hurting yourself in some way: not at all Total score: 0 Depression Screening Interpretation: Negative Depression Screening Done: Yes 20304 - PHQ-9 Billing: Yes Source: Developed by Drs. Jcarlos Clarke, Malissa B.Tejinder Guevara and colleagues, with an educational natali from [employer]. Thrive Questionnaire Date Thrive assessed: 08/06/24 I am a: Patient What is your living situation today?: I have a steady place to live Within the past 12 months, did the food you bought not last and you didn't have the money to get more?: Never true Within the past 12 months, did you worry whether your food would run out before you got money to buy more?: Never true Do you have trouble paying for medicines?: No Do you have trouble getting transportation to medical appointments?: No Do you have trouble paying your heating and electricity bill?: No Do you have trouble taking care of your child, family member or friend?: No Do you have trouble with day-to-day activities such as bathing, preparing meals, shopping, managing finances, etc.?: No Are you currently unemployed and looking for a job?: No Are you interested in more education?: No Please select the resources that you would like help with: None Currently or been in a relationship where the following occur: No concerns reported THRIVE Score: 0 AUDIT C Alcohol Use Questionnaire (AUDIT-C) 1. How often do you have a drink containing alcohol?: Never 3. How often do you have six or more drinks on one occasion?: Never Total Score: 0 Score Reviewed/Action Taken: Yes FLORIN-7 AMB Questionnaire FLORIN-7 Date FLORIN - 7 assessed: 08/06/24 Feeling nervous, anxious, or on edge: 0 = Not at all Not being able to stop or control worryin = Not at all Worrying too much about different things: 0 = Not at all Trouble relaxin = Not at all Being so restless that it is hard to sit still: 0 = Not at all Becoming easily annoyed or irritable: 0 = Not at all Feeling afraid as if something awful might happen: 0 = Not at all Total FLORIN-7 score (0-4 normal; 5-9 mild; 10-14 moderate; 15-21 severe): 0 Source: Developed by Drs. Jcarlos Clarke, Tejinder Tripp and colleagues, with an educational natali from [employer]. Review of Systems Const Denies chills, Denies fatigue, Denies fever(s) and Denies headache(s) ENT Denies dysphagia, Denies dizziness, Denies otalgia, Denies headache(s), Denies neck pain, Denies odynophagia and Denies sore throat Card Denies chest pain, Denies irregular heart rhythm, Denies palpitations and Denies dyspnea Resp Denies chest congestion, Denies cough and Denies dyspnea GI Denies abdominal pain, Denies constipation, Denies dysphagia, Denies heartburn, Denies diarrhea, Denies nausea, Denies odynophagia and Denies vomiting Denies difficulty urinating, Denies dysuria, Reports nocturia (at times) and Denies urinary frequency Musc Denies back pain, Reports arthralgias (over both knees), Denies joint swelling and Denies neck pain Skin/Breast Denies rash Neuro Denies dizziness, Denies headache(s) and Denies paresthesias Endo Denies fatigue and Denies palpitations Physical exam (Primary Care) Vital Signs: Last Vital Signs Pulse 102 H 08/06/24 09:46 BP 130/60 08/06/24 09:46 Pulse Ox 96 08/06/24 09:46 Oxygen Delivery Method Room Air 08/06/24 09:46 BMI result Body Mass Index 28.6 Tobacco/Smoking Status: Tobacco use Status Tobacco use date assessed 08/06/24 08/06/24 09:52 Patient Tobacco Use Status Never used Tobacco 08/06/24 09:52 e-Cigarette/Vaping Use Never Used 08/06/24 09:52 PHQ-9: PHQ-9 Score PHQ-9: Total score 0 08/06/24 09:52 Depression Screening Interpretation: Negative Thrive Assessment: Date of Thrive Assessment Date Thrive assessed 08/06/24 08/06/24 09:52 Currently or been in a relationship where the following occur: No concerns reported Const General: no acute distress and alert HENMT Ears: TM's normal bilaterally and EAC's normal Throat: Yes posterior oropharynx normal and Yes tonsils normal (no TP congestion) Neck Neck: Yes supple and No lymphadenopathy Thyroid: Thyroid normal Resp Auscultation: clear to auscultation bilaterally, no rales and no wheezes Cardio Rate: regular rate Rhythm: regular rhythm Heart sounds: no murmurs GI Palpation (GI): Soft to palpation and nontender Auscultation: normal bowel sounds General: Yes no CVA tenderness Back/Spine/Pelvis Back: no CVA tenderness Thoracic/Lumbar Spine: No lumbar spinal tenderness Skin Rashes: no rashes Extrem General: Yes no clubbing, cyanosis or edema Right lower extremity: knee Details: tenderness; no swelling Left lower extremity: knee Details: tenderness; no swelling Results Reviewed Results Reviewed: Laboratory Tests 08/03/24 08/03/24 07:52 07:54 WBC 7.4 Hgb 14.7 Hct 43.1 Plt Count 233 Sodium 139 Potassium 4.0 Creatinine 0.79 Estimated GFR > 60 Fasting Glucose 162 H Hemoglobin A1c % 9.6 H Calcium 9.1 D AST 16 ALT 18 Triglycerides 43 Cholesterol 111 LDL Cholesterol, Calc 53 HDL Cholesterol 50 TSH 1.06 Ur Specific Orestes >= 1.030 H Urine Protein Negative Urine Glucose (UA) >=1000 H Urine Blood Negative Urine Nitrite Negative Ur Leukocyte Esterase Negative Coding Level of Care Code Est Pt Level 4 (14723) Complex EM visit Add On G2211 Diagnoses Type 2 diabetes mellitus with hyperglycemia, with long-term current use of insulin E11.65; Z79.4 Diabetes mellitus exterminator termite insulin use: with exterminator termite use Pure hypercholesterolemia E78.00 Benign essential hypertension I10 Erectile dysfunction, unspecified erectile dysfunction type N52.9 Erectile dysfunction type: unspecified Bilateral primary osteoarthritis of knee M17.0 Bilateral hearing loss, unspecified hearing loss type H91.93 Hearing loss type: unspecified Overweight (BMI 25.0-29.9) E66.3 Additional Codes PHQ-9 - 53206 - PHQ-9 Billing: Yes ([id number]) Assessment & Plan Assessment & Plan (1) Type 2 diabetes mellitus with hyperglycemia: Code(s): E11.65 - Type 2 diabetes mellitus with hyperglycemia Category: Medical Qualifiers: Diabetes mellitus correction insulin use: with correction use Qualified Code(s): E11.65 - Type 2 diabetes mellitus with hyperglycemia; Z79.4 - intermediate (current) use of insulin Plan: His HgbA1c was at 9.6% on his labs done a few days ago (was previously at 9.2% about 4 months ago) - goal is at least <7.0% Reinforced diabetic diet Continue Trulicity 3.0 mg SQ once a week, Metformin 1000 mg BID, Jardiance 25 mg QD and Lantus 15 units QD for now He was following up with endocrinology for his diabetes but states that his appointments a couple of months ago were cancelled and he has not been able to get any appointments rescheduled since States that he had some insurance change recently so we will try to send out a new referral to endocrinology to help him get back on track (2) Pure hypercholesterolemia: Code(s): E78.00 - Pure hypercholesterolemia, unspecified Category: Medical Plan: Results of his labs done a few days ago reviewed and discussed with patient Reinforced low cholesterol diet Continue Atorvastatin 20 mg QD Will recheck his labs and fasting lipids in 4 months for follow up (3) Benign essential hypertension: Code(s): I10 - Essential (primary) hypertension Category: Medical Plan: Reinforced low sodium diet - goal is systolic BP of 120 mm or less Continue Lisinopril 5 mg QD (4) Erectile dysfunction: Code(s): N52.9 - Male erectile dysfunction, unspecified Category: Medical Qualifiers: Erectile dysfunction type: unspecified Qualified Code(s): N52.9 - Male erectile dysfunction, unspecified Plan: He is advised again that this mostly has to do with his hyperlipidemia and suboptimally controlled diabetes and should hopefully improve once these conditions are better controlled Continue Sildenafil 50 mg QD PRN (5) Bilateral primary osteoarthritis of knee: Code(s): M17.0 - Bilateral primary osteoarthritis of knee Category: Medical Plan: X-rays of the right knee done a few years ago revealed (+) effusion and some loose bodies but no fractures noted; MRI done in January 2018 showed (+) mild OA changes as well as a flap tear of the posterior horn of the medial meniscus Repeat x-rays of both knees done last year again showed (+) OA changes in both knees and recommended MRI for further evaluation MRI of bilateral knees was ordered previously but insurance denied the procedure He was seen by orthopedics and had cortisone injections into his knees back in June 2023, which he states did not really help much Patient states that he has tried reaching out to orthopedics a few times over the past couple of months to schedule a follow up appointment with them but has been unsuccessful - states that no one is calling him back Will try to send out a new referral to orthopedics as he reports recently changing health insurance (6) Bilateral hearing loss: Code(s): H91.93 - Unspecified hearing loss, bilateral Category: Medical Qualifiers: Hearing loss type: unspecified Qualified Code(s): H91.93 - Unspecified hearing loss, bilateral Plan: He was previously referred to ENT back in 2020 but states that he was never contacted and never scheduled for an appointment We tried referring him to [place] speech [facility] [place] [facility] [place] exam/evaluation but he apparently did not show up for his appointment in June 2023 - this may have corresponded to when patient lost his health insurance Will look into referring him again later on once his insurance issues are resolved (7) Overweight (BMI 25.0-29.9): Code(s): E66.3 - Overweight Category: Medical Plan: Reinforced diet/exercise as tolerated/lose weight Plan Follow up in 4 months Orders: Orders Comprehensive [place]. Panel Fast 4 Months E78.00 - Pure hypercholesterolemia, unspecified Lipid Panel 4 Months E78.00 - Pure hypercholesterolemia, unspecified Microalbumin, Random (w Creat) 4 Months E11.9 - Type 2 diabetes mellitus without complications TSH reflex Free T4 4 Months E78.00 - Pure hypercholesterolemia, unspecified Vitamin D 25-OH Total 4 Months E55.9 - Vitamin D deficiency, unspecified Complete Blood Count Auto Diff 4 Months D64.9 - Anemia, unspecified Hemoglobin A1c 4 Months E11.9 - Type 2 diabetes mellitus without complications UA CC w/rflx Micro + Cult 4 Months R30.0 - Dysuria Vitamin B12 and Folate 4 Months E53.8 - Deficiency of other specified B group vitamins Referrals Endocrinology Referral E11.65 - Type 2 diabetes mellitus with hyperglycemia, Z79.4 - intermediate (current) use of insulin Orthopedics Referral M17.0 - Bilateral primary osteoarthritis of knee
== END 2024-08-06 10:21 | disposition home or self-care (01) ==
LOC: HO.HMCH 09:45
PROVIDERS: PCP Internal Medicine; Visit Provider Internal Medicine
DX: E11.65 Type 2 diabetes mellitus with hyperglycemia (principal); Z79.4 Long term (current) use of insulin; E78.00 Pure hypercholesterolemia, unspecified; I10 Essential (primary) hypertension; N52.9 Male erectile dysfunction, unspecified; M17.0 Bilateral primary osteoarthritis of knee; H91.93 Unspecified hearing loss, bilateral; E66.3 Overweight

== ENCOUNTER → 2024-08-06 09:45 | Outpatient (BNVA) | payer OTHER, SELFPAY | PROVIDERS: PCP Internal Medicine; Visit Provider Internal Medicine | DX: E11.65 Type 2 diabetes mellitus with hyperglycemia (principal); E78.5 Hyperlipidemia, unspecified; E78.00 Pure hypercholesterolemia, unspecified; I10 Essential (primary) hypertension; N52.9 Male erectile dysfunction, unspecified; M17.0 Bilateral primary osteoarthritis of knee; H91.93 Unspecified hearing loss, bilateral; E66.3 Overweight; E55.9 Vitamin D deficiency, unspecified; D64.9 Anemia, unspecified; R30.0 Dysuria; E53.8 Deficiency of other specified B group vitamins; Z79.4 Long term (current) use of insulin; Z68.28 Body mass index [BMI] 28.0-28.9, adult | CPT/HCPCS: 96127; 99212 ==

== ENCOUNTER 2024-08-09 09:19 | Outpatient (AMB) | payer OTHER, SELFPAY ==
--- NOTE | 2024-08-09 09:28 | MHC.OFFVIS ---
Vital Signs 08/09/24 09:29 Height 5 ft 8 in Weight 182 lb 5.156 oz BMI 27.7 BP 112/62 Blood Pressure Location Rt brachial Position Sitting Pulse 98 Pulse Source Pulse Oximeter Pulse Oximetry (%) 98 Oxygen Delivery Method Room Air Intake Visit Reasons: T2DM Intake Note: Patient present today to follow up on Type 2 Diabetes Mellitus. 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 Patient was diagnosed with type 2 diabetes 15 years ago. Mother and sister from Type II DM complications. His brother also has Type II diabetes. Patient is not checking BG consistently. He does not have a glucometer today. He does not have a CGM. Hemoglobin A1c 9.6% 08/03/2024. Current medication regimen: Trulicity 3 mg weekly, Jardiance 25 mg, Lantus 10 units nightly, metformin 1000 mg twice daily. Compliance issues: Patient says he is taking all of his medications. Diet: Drinks coffee with cream and sugar. Drinks red bull frequently. He has juice, yogurt, vegetables and a lot of bread and some rice. No soda Nonsmoker No alcohol Hypoglycemia symptoms: none Hyperglycemia symptoms: blurry vision, polyuria, polydipsia Eye exam: overdue- scheduled this month Microvascular complications: neuropathy Macrovascular complications: none Hypertension: treated with lisinopril 5 mg daily. Hyperlipidemia: treated with atorvastatin 20 mg. ROS: Constitutional: No unexplained weight loss, fevers or chills. Eyes: No vision changes, blurry vision, double vision, eye pain, eye redness, eye discharge. Respiratory: No shortness of breath Cardiovascular: No chest pain, chest pressure or chest discomfort. No palpitations or pedal edema. Gastrointestinal: No anorexia, nausea, vomiting or diarrhea. No abdominal pain or blood in stool. Neurologic: No headache, dizziness, syncope, unilateral weakness, ataxia, numbness or tingling in the extremities. Endocrine: No cold or heat intolerance. Physical exam: Constitutional: Alert, in no distress. Head: Normocephalic. Eyes: Pupils are equal, round and reactive to light. Extraocular muscles intact. Neck: Supple, Full range of motion. No lymphadenopathy. No palpable thyroid masses. Respiratory: Clear to auscultation. Cardiovascular: S1 S2 regular. No murmurs. Feet: Patient declined exam. Denies open wounds, swelling, numbness or tingling. [facility] Medical History Type 2 diabetes mellitus with hyperglycemia Vitamin D deficiency Erectile dysfunction Bilateral hearing loss Overweight (BMI 25.0-29.9) Benign essential hypertension Pure hypercholesterolemia Type 2 diabetes mellitus Surgical History No pertinent past surgical history Family History Father No problems noted. Mother No problems noted. Social History Housing: House Alcohol intake: former Patient Tobacco Use Status: Never used Tobacco e-Cigarette/Vaping Use: Never Used Second Hand Smoke Exposure: No service: No Current occupational status: employed Cognitive needs: No Hearing needs: No Vision needs: No Physical Exam Vital Signs: Last Vital Signs Pulse 98 08/09/24 09:29 BP 112/62 08/09/24 09:29 Pulse Ox 98 08/09/24 09:29 Oxygen Delivery Method Room Air 08/09/24 09:29 BMI result Body Mass Index 27.7 Results Reviewed Results Reviewed: Laboratory Tests 04/02/24 08/03/24 08:12 07:54 Plt Count 233 Creatinine 0.79 Estimated GFR > 60 Hemoglobin A1c % 9.2 H 9.6 H AST 16 ALT 18 Triglycerides 43 Cholesterol 111 LDL Cholesterol, Calc 53 HDL Cholesterol 50 TSH 1.06 Urine Creatinine 59.35 Urine Microalbumin < 5.0 Microalb/Creat Ratio TNP Assessment & Plan Assessment & Plan (1) Type 2 diabetes mellitus with hyperglycemia: Code(s): E11.65 - Type 2 diabetes mellitus with hyperglycemia Category: Medical Qualifiers: Diabetes mellitus ocean transportation intermediary insulin use: with fci use Qualified Code(s): E11.65 - Type 2 diabetes mellitus with hyperglycemia; Z79.4 - care home (current) use of insulin Plan In summary this is a 58-year-old male with uncontrolled type 2 diabetes with no known complications. He has a follow up scheduled with the dietitian. Discussed pathophysiology of Type II Diabetes Mellitus with the patient in detail.? I explained the fci risks and complications associated with uncontrolled diabetes including nephropathy, neuropathy, peripheral vascular disease, retinopathy, increased risk of heart disease and stroke.? Discussed lifestyle modification with the patient. Recommended 30 minutes of moderately vigorous exercise 5 days per week to promote weight loss. Continue metformin 1000 mg twice a day. Continue Jardiance 25 mg daily. Increase Trulicity to 4.5 mg weekly. Increase Lantus to 15 units nightly. Sent Alix 3+ sensors and reader to the pharmacy. Instructed to call when he picks this up from the pharmacy. It will require prior authorization. We reviewed treatment of hypo/hyperglycemia. Written instructions given. Glucose tablets sent to pharmacy. Patient instructed to follow up with me in 4 weeks for type 2 diabetes. Medications: New blood sugar diagnostic (FreeStyle Lite Strips) 1 strip miscellaneous TID 200 strips 5RF blood-glucose,front desk team member,cont (FreeStyle Alix 3 [place]) Use daily to monitor blood glucose levels continuously. 1 ea 0RF blood-glucose sensor (FreeStyle Alix 3 Plus Sensor device) Apply 1 new sensor every 15 days as directed to monitor blood glucose continuously. 2 ea 11RF E11.65 - Type 2 diabetes mellitus with hyperglycemia, Z79.4 - care home (current) use of insulin dulaglutide (Trulicity) 4.5 mg (0.5 mL) subcut QWEEK 2 mL 3RF Refilled blood-glucose meter (FreeStyle Lite Meter kit) As directed 1 ea 0RF E11.9 - Type 2 diabetes mellitus without complications glucose (Dex4 Glucose) until symptoms of low blood sugar are controlled 16 grams (4 x 4 gram) PO Q15M PRN 10 tabs 3RF hypoglycemia Discontinued dulaglutide Discontinued Reason: Doctor's Order 3 mg (0.5 mL) subcut QWEEK 90 days 6.5 mL 3RF E11.65 - Type 2 diabetes mellitus with hyperglycemia blood-glucose sensor (Dexcom G7 Sensor device) Discontinued Reason: Doctor's Order apply new sensor every 10 days as directed 3 ea 11RF blood-glucose,front desk team member,cont (Dexcom G7 Contracts Administrator) Discontinued Reason: Doctor's Order As directed 1 ea 0RF Patient Instructions: Continue Jardiance 25 mg daily Continue Metformin 1000 mg twice daily. Increase Lantus to 15 units nightly Increase Trulicity to 4.5 mg weekly. If you experience low blood sugar, treat this by eating a chewable fruit candy like skittles or jelly beans (about 8 pieces), 4 ounces (1/2 cup) of fruit juice (not diet), 1 tablespoon of honey or 4 glucose tablets. If your blood sugar is under 50, take double the amount of one of the above. Recheck your blood sugar in 15 minutes. I sent the prescription for the Alix 3 glucose monitor to the pharmacy. When you pick it up from the pharmacy, call the office. [facility] ?[address], [address] [place] [address] ?[phone] Coding Level of Care Code Est Pt Level 4 (71416) Complex EM visit Add On G2211 Diagnoses Type 2 diabetes mellitus with hyperglycemia, with long-term current use of insulin E11.65; Z79.4 Diabetes mellitus ocean transportation intermediary insulin use: with fci use
[2024-08-09 09:29] VITALS: BP 112/62; PULSE 98; O2SAT 98; BMI 27.7
[2024-08-09 09:59] LABS: Glucose, Whole Blood 292 mg/dL (60-115)
== END 2024-08-09 10:05 | disposition home or self-care (01) ==
LOC: HO.ENCR 09:20
PROVIDERS: PCP Internal Medicine; Visit Provider Physician Assistant Medical
DX: E11.65 Type 2 diabetes mellitus with hyperglycemia (principal); Z79.4 Long term (current) use of insulin

== ENCOUNTER → 2024-08-09 09:19 | Outpatient (BNVA) | payer OTHER, SELFPAY | PROVIDERS: PCP Internal Medicine; Visit Provider Physician Assistant Medical | DX: E11.65 Type 2 diabetes mellitus with hyperglycemia (principal); Z79.4 Long term (current) use of insulin | CPT/HCPCS: 82947; 99212 ==

== ENCOUNTER 2024-10-09 08:47 | Outpatient (REF) | payer OTHER, SELFPAY | END 2024-10-09 08:48 | disposition home or self-care (01) | LOC: HO.HOSX 08:47 | PROVIDERS: Visit Provider Orthopaedic Surgery | DX: Z13.89 Encounter for screening for other disorder (principal) ==